=== PATIENT | female | born 1970 | race Caucasian/White ===

== ENCOUNTER → 2016-11-25 | Outpatient (CLI) | payer BC, MEDICARE ==
--- NOTE | 2016-11-26 08:28 | BD ---
EXAMINATION TYPE: MG DEXA axial skeleton. DATE OF EXAM: 11/25/2016 4:03 PM COMPARISON: NONE CLINICAL HISTORY: [id number] OSTEOPOROSIS Height: 63 Weight: 196 FRAX RISK QUESTIONS: Alcohol (3 or more units per day): NO Family History (Parent hip fracture): NO Glucocorticoids (More than 3mos): NO (Ex: prednisone, prednisolone, methylprednisolone, dexamethasone, and hydrocortisone). History of Fracture in Adulthood: PT NOT 48 YET Secondary Osteoporosis: NO 1. Type 1 Diabetes: NO 2. Hyperthyroidism: NO 3. Menopause before 45: NA 4. Malnutrition: NO 5. Chronic liver disease: NO Rheumatoid Arthritis: NO Current Tobacco Use: YES RISK FACTORS HISTORY OF: History of Wrist RT HAND When: 2016 Other Fractures since Age 48: NA Family History of Osteoporosis: NONE KNOWN Smoke tobacco: YES, 1 PAC DAILY Drink Alcohol: NO Active: MODERATE Diet low in dairy products/other sources of calcium: YES, A BIT LOW Postmenopausal woman: LMP 1 WK AGO Adrenal Insufficiency: NO MEDICATIONS: Thyroid Medications: YES, SYNTHROID How Lon YR Additional Medications: VIT D 3, MULTIVITAMIN, SERAQUIL, LAMICTIL, ENDURAL, EFFEXOR, VIT B COMPLEX Additional History: MOTHER PASSED OF MULTIPLE MYLOMA, BIPOLAR EXAM MEASUREMENTS: Bone mineral densitometry was performed using the [employer] System. Bone mineral density as measured about the Lumbar spine is: ----- L1-L4(G/cm2): 1.226 T Score Values are as follows: ----- L1: 0.3 ----- L2: -0.9 ----- L3: 1.4 ----- L4: 0.5 ----- L1-L4: 0.4 Bone mineral density THIS IS HER FIRST BONE DENSITY TEST....BASELINE STUDY Bone mineral density about the R hip (g/cm2): 0.974 Bone mineral density about the L hip (g/cm2): 0.981 T Score values are as follows: -----R Neck: -1.0 -----L Neck: -1.0 -----R Intertrochanter: -0.8 -----L Intertrochanter: -0.5 Bone mineral density FIRST BONE DENSITY SCAN, BASELINE STUDY FRAX %'S: 6.4% FOR A MAJOR OSTEOPOROTIC FX AND 0.6% FOR A HIP FX: PROBABILITY OF A FX IN 10 YRS TIME IMPRESSION: Normal (Values between +1 and -1 indicate normal bone mass FOR BOTH AREAS...BOTH HIPS AND LUMBAR SPINE) NOTE: T-SCORE=SD OF THE YOUNG ADULT MEAN.
== END | disposition home or self-care (01) ==
LOC: RADBDWWP 15:27
PROVIDERS: ATTEND Internal Medicine
DX: M80.041 Age-related osteoporosis with current pathological fracture, right hand (principal)
CPT/HCPCS: 77080

== ENCOUNTER → 2016-11-30 | Outpatient (CLI) | payer BC, MEDICARE ==
--- NOTE | 2016-12-01 12:01 | MR ---
EXAMINATION TYPE: MR brain wo con DATE OF EXAM: 11/30/2016 2:59 PM COMPARISON: 03/30/2012 MRI HISTORY: Double vision, unsteady, migraines CONTRAST: Performed utilizing 0 mL intravenous Omniscan gadolinium contrast. TECHNIQUE: Multiplanar, multiecho imaging on a 3.0 Fifi magnet is performed through the brain. Stud y is performed within 24 hours of arrival to the hospital. The craniovertebral junction is normal. The pituitary is normal. Diffusion-weighted imaging is performed. No abnormal hyperintensity is present to suggest an acute i ntracranial infarct or acute ischemic change. There are couple of punctate hyperintensities within the right. These are nonspecific but can related to microvascular ischemic changes. Changes associated with high-grade headaches could be considered. Ventricles and sulci are appropriate for the patient age. Pituitary is prominent measuring 1.0 cm and is hyperintense on T2 and inversion recovery weighted seq uences. This is hypointense on T1-weighted sequences could be a cyst. This is stable from comparison. IMPRESSIONS: 1. Nonspecific white matter hyperintensities not out of proportion to the patient age
== END | disposition home or self-care (01) ==
LOC: RADMRIMAIN 14:11
PROVIDERS: ATTEND Psychiatry & Neurology Neurology
DX: R90.82 White matter disease, unspecified (principal)
CPT/HCPCS: 70551

== ENCOUNTER 2017-04-11 15:55 | Emergency (ER) | payer BC, MEDICARE ==
[2017-04-11] MEDS ORDERED: SODIUM CHLORIDE 0.9% 1,000 ML IV STA (17:32)
--- NOTE | 2017-04-11 17:37 | ED ---
General Adult HPI - General Chief complaint: Fall Stated complaint: syncope/facial injury Time Seen by Provider: 04/11/17 17:04 Source: patient, RN notes reviewed Mode of arrival: wheelchair Limitations: no limitations - History of Present Illness Initial comments: Patient is a 47-year-old female presents to the emergency room for evaluation of possible syncopal episode. Patient states she does have a history of ocular migraines. Patient states she went to Dr. Candelaria's office yesterday for a regular checkup and everything was normal. Patient states around 11:30 PM last night she went into the kitchen to make herself a bologna sandwich. Patient states that she started to feel very dizzy and began having double vision. Patient states she walked her living room and she woke up face planted on the floor. Patient states she got up and went to walk to her stove to turn it off and woke up on the kitchen floor. Patient states that this went on for about an hour. Patient states after the episode around 12:30 AM she was completely lucid and felt fine. Patient states that she had a laceration over the bridge of her nose, cleaned it up and went to bed. Patient states she woke up this morning feeling fine. Patient states she tried to follow-up with her primary care provider but he is not in the office today. Patient states that she called her neurologist and she was advised to come to the emergency room to be evaluated. Patient does state that she is having pain over her nasal bridge and over her face. Patient states having 5 out of 10 headache. Patient also states she has 2 busby on the palmar portion of her right hand. Patient denies neck pain. Patient denies parasthesias. Patient denies current dizziness or changes in vision. Patient denies any other symptoms or complaints. Patient denies chest pain shortness of breath. Patient's fevers or chills. Patient denies nausea or vomiting. - Related Data Home Medications Medication Instructions Recorded Confirmed Levothyroxine Sodium [Synthroid] 25 mcg PO DAILY 04/11/17 04/11/17 Multivitamins, Thera [Multivitamin 1 tab PO DAILY 04/11/17 04/11/17 (formulary)] Propranolol [Inderal] 20 mg PO HS 04/11/17 04/11/17 QUEtiapine FUMARATE [SEROquel] 600 mg PO HS 04/11/17 04/11/17 Venlafaxine HCl [Effexor] 225 mg PO QAM 04/11/17 04/11/17 lamoTRIgine [LaMICtal] 200 mg PO HS 04/11/17 04/11/17 Allergies Allergy/AdvReac Type Severity Reaction Status Date / Time No Known Allergies Allergy Verified 04/11/17 16:58 Review of Systems ROS Statement: Those systems with pertinent positive or pertinent negative responses have been documented in the HPI. ROS Other: All systems not noted in ROS Statement are negative. Past Medical History Past Medical History: Thyroid Disorder Additional Past Medical History / Comment(s): POTS syndrome, brain cyst History of Any Multi-Drug Resistant Organisms: None Reported Past Surgical History: Cholecystectomy Past Psychological History: Bipolar Smoking Status: Current every day smoker Past Alcohol Use History: None Reported Past Drug Use History: None Reported General Exam - General Exam Comments Initial Comments: sitting in exam room, no acute distress. Limitations: no limitations General appearance: alert, in no apparent distress Head exam: Present: atraumatic, normocephalic, normal inspection Eye exam: Present: normal appearance, PERRL, EOMI Pupils: Present: normal accommodation ENT exam: Present: normal exam, normal oropharynx, other (1 cm laceration over nasal bridge.) Neck exam: Present: normal inspection, full ROM. Absent: tenderness, lymphadenopathy Respiratory exam: Present: normal lung sounds bilaterally. Absent: respiratory distress Cardiovascular Exam: Present: normal rhythm, tachycardia, normal heart sounds Right Hand Wrist exam: Present: full ROM. Absent: normal inspection (Two second degree busby on the palmar portion of the right hand with slight blistering.) Neuro motor exam: Present: wrist extension intact, thumb opposition intact, thumb IP flexion intact, thumb adduction intact, fingers 2-5 abduction intact Vascular: Present: normal capillary refill ( capillary refill less than 2 seconds), radial pulse (2+), ulnar pulse (2+) Back exam: Present: normal inspection Neurological exam: Present: alert, oriented X3, CN II-XII intact, normal gait Psychiatric exam: Present: normal affect, normal mood Skin exam: Present: warm, dry. Absent: rash Course Vital Signs 04/11/17 04/11/17 16:00 19:25 Temperature 99.9 F H Pulse Rate 114 H 87 Respiratory 17 18 Rate Blood Pressure 127/81 132/69 O2 Sat by Pulse 99 95 Oximetry EKG Findings - EKG Comments: EKG Findings:: normal sinus rhythm, ventricular rate 86 bpm, NC interval 148 ms , QRS duration 72 ms, QT/QTC 392/469 ms Procedures - Laceration Laceration #1 Consent Obtained: verbal consent Indication: laceration Site: face Size (cm): 1 Description: irregular Depth: simple, single layer Type of Sutures: other (Dermabond) Patient Tolerated Procedure: well, no complications Medical Decision Making - Medical Decision Making patient is a 47-year-old female presents emergency room for evaluation of possible syncopal episode. Vaginal acute findings. Patient did have a superficial laceration of the nasal bridge that was repaired with Dermabond. Patient updated on her tetanus vaccine. Patient does have 2 second-degree busby on right palmar portion of the hand. Because of patient's symptoms last night it was recommended that patient stay for observation. Patient states that she would rather go home and follow up with her primary care provider/ neurologist on Friday. Patient states that she will be at home with her and he will keep an eye on her. Patient states that she will return for any changing or worsening symptoms. - Lab Data Result diagrams: 04/11/17 17:50 04/11/17 17:50 Lab Results 04/11/17 04/11/17 04/11/17 Range/Units 17:50 17:50 17:50 WBC 12.4 H (3.8-10.6) k/uL RBC 4.91 (3.80-5.40) m/uL Hgb 14.8 (11.4-16.0) gm/dL Hct 43.1 (34.0-46.0) % MCV 87.6 (80.0-100.0) fL MCH 30.0 (25.0-35.0) pg MCHC 34.3 (31.0-37.0) g/dL RDW 12.9 (11.5-15.5) % Plt Count 390 (150-450) k/uL Neutrophils % 71 % Lymphocytes % 22 % Monocytes % 4 % Eosinophils % 1 % Basophils % 0 % Neutrophils # 8.8 H (1.3-7.7) k/uL Lymphocytes # 2.8 (1.0-4.8) k/uL Monocytes # 0.5 (0-1.0) k/uL Eosinophils # 0.1 (0-0.7) k/uL Basophils # 0.1 (0-0.2) k/uL PT (9.0-12.0) sec INR (<1.2) APTT (22.0-30.0) sec Sodium 140 (137-145) mmol/L Potassium 4.0 (3.5-5.1) mmol/L Chloride 106 (98-107) mmol/L Carbon Dioxide 21 L (22-30) mmol/L Anion Gap 13 mmol/L BUN 8 (7-17) mg/dL Creatinine 0.95 (0.52-1.04) mg/dL Est GFR (MDRD) Af Amer >60 (>60 ml/min/1.73 sqM) Est GFR (MDRD) Non-Af >60 (>60 ml/min/1.73 sqM) Glucose 89 (74-99) mg/dL Calcium 9.8 (8.4-10.2) mg/dL Magnesium 2.2 (1.6-2.3) mg/dL Total Bilirubin 0.5 (0.2-1.3) mg/dL AST 19 (14-36) U/L ALT 26 (9-52) U/L Alkaline Phosphatase 76 (38-126) U/L Total Creatine Kinase 57 (30-135) U/L CK-MB (CK-2) 0.5 (0.0-2.4) ng/mL CK-MB (CK-2) Rel Index 0.9 Troponin I <0.012 (0.000-0.034) ng/mL Total Protein 7.6 (6.3-8.2) g/dL Albumin 4.6 (3.5-5.0) g/dL Urine Color Urine Appearance (Clear) Urine pH (5.0-8.0) Ur Specific [place] (1.001-1.035) Urine Protein (Negative) Urine Glucose (UA) (Negative) Urine Ketones (Negative) Urine Blood (Negative) Urine Nitrite (Negative) Urine Bilirubin (Negative) Urine Urobilinogen (<2.0) mg/dL Ur Leukocyte Esterase (Negative) 04/11/17 04/11/17 Range/Units 17:50 18:00 WBC (3.8-10.6) k/uL RBC (3.80-5.40) m/uL Hgb (11.4-16.0) gm/dL Hct (34.0-46.0) % MCV (80.0-100.0) fL MCH (25.0-35.0) pg MCHC (31.0-37.0) g/dL RDW (11.5-15.5) % Plt Count (150-450) k/uL Neutrophils % % Lymphocytes % % Monocytes % % Eosinophils % % Basophils % % Neutrophils # (1.3-7.7) k/uL Lymphocytes # (1.0-4.8) k/uL Monocytes # (0-1.0) k/uL Eosinophils # (0-0.7) k/uL Basophils # (0-0.2) k/uL PT 10.2 (9.0-12.0) sec INR 1.0 (<1.2) APTT 25.4 (22.0-30.0) sec Sodium (137-145) mmol/L Potassium (3.5-5.1) mmol/L Chloride (98-107) mmol/L Carbon Dioxide (22-30) mmol/L Anion Gap mmol/L BUN (7-17) mg/dL Creatinine (0.52-1.04) mg/dL Est GFR (MDRD) Af Amer (>60 ml/min/1.73 sqM) Est GFR (MDRD) Non-Af (>60 ml/min/1.73 sqM) Glucose (74-99) mg/dL Calcium (8.4-10.2) mg/dL Magnesium (1.6-2.3) mg/dL Total Bilirubin (0.2-1.3) mg/dL AST (14-36) U/L ALT (9-52) U/L Alkaline Phosphatase (38-126) U/L Total Creatine Kinase (30-135) U/L CK-MB (CK-2) (0.0-2.4) ng/mL CK-MB (CK-2) Rel Index Troponin I (0.000-0.034) ng/mL Total Protein (6.3-8.2) g/dL Albumin (3.5-5.0) g/dL Urine Color Yellow Urine Appearance Clear (Clear) Urine pH 6.5 (5.0-8.0) Ur Specific [place] 1.007 (1.001-1.035) Urine Protein Negative (Negative) Urine Glucose (UA) Negative (Negative) Urine Ketones Negative (Negative) Urine Blood Negative (Negative) Urine Nitrite Negative (Negative) Urine Bilirubin Negative (Negative) Urine Urobilinogen <2.0 (<2.0) mg/dL Ur Leukocyte Esterase Negative (Negative) - Radiology Data Radiology results: report reviewed, image reviewed Disposition Clinical Impression: Episode of syncope, Facial laceration, Burn of hand, right, second degree Disposition: Left Against Medical Advice Condition: Good Instructions: Syncope (ED), Second Degree Burn (ED) Additional Instructions: Take Tylenol or Motrin as needed for headache. Please follow up with primary care provider or neurologist on Friday. If any new symptom arises or symptoms worsen, return to ER as soon as possible. Referrals: Justo Sarmiento MD [Primary Care Provider] - 1-2 days Con Candelaria MD [STAFF PHYSICIAN] - 1-2 days Time of Disposition: 19:41
[2017-04-11 18:18] LABS: Basophils # (A) 0.1 k/uL (0-0.2); Basophils % (A) 0 %; CH 29.6; CHCM 33.9; Eosinophils # (A) 0.1 k/uL (0-0.7); Eosinophils % (A) 1 %; HCT 43.1 % (34.0-46.0); HDW 2.37; HGB 14.8 gm/dL (11.4-16.0); Luc # (Auto) 0.13; Luc % (Auto) 1; Lymphocytes # (A) 2.8 k/uL (1.0-4.8); Lymphocytes % (A) 22 %; MCHC 34.3 g/dL (31.0-37.0); MCV 87.6 fL (80.0-100.0); Mean Platelet Volume 7.4; Monocytes # (A) 0.5 k/uL (0-1.0); Monocytes % (A) 4 %; Neutrophils # (A) 8.8 k/uL (1.3-7.7); Neutrophils % (A) 71 %; RBC 4.91 m/uL (3.80-5.40); RDW 12.9 % (11.5-15.5); WBC 12.4 k/uL (3.8-10.6); WBC (Perox) 11.86
[2017-04-11 18:25] LABS: Appearance,Urine Clear (Clear); Bilirubin,Urine Negative (Negative); Glucose,Urine (UA) Negative (Negative); Ketones,Urine Negative (Negative); Leukocyte Esterase,Urine Negative (Negative); Nitrite,Urine Negative (Negative); PH, Urine 6.5 (5.0-8.0); Protein,Urine Negative (Negative); Specific Gravity,Urine 1.007 (1.001-1.035); UA Billing (MACRO vs. MICRO) CHEM; Urobilinogen,Urine <2.0 mg/dL (<2.0)
[2017-04-11 18:33] LABS: ALT 26 U/L (9-52); AST 19 U/L (14-36); Alkaline Phosphatase 76 U/L (38-126); Anion Gap 13 mmol/L; Blood Urea Nitrogen 8 mg/dL (7-17); Calcium 9.8 mg/dL (8.4-10.2); Carbon Dioxide 21 mmol/L (22-30); Chloride 106 mmol/L (98-107); Glucose 89 mg/dL (74-99); Magnesium 2.2 mg/dL (1.6-2.3); Non-African American GFR(MDRD) >60 (>60 ml/min/1.73 sqM); Sodium 140 mmol/L (137-145); Total Bilirubin 0.5 mg/dL (0.2-1.3); Total Protein 7.6 g/dL (6.3-8.2)
[2017-04-11 18:38] LABS: Creatine Kinase 57 U/L (30-135); Prothrombin Time 10.2 sec (9.0-12.0)
[2017-04-11 18:39] LABS: Partial Thromboplastin Time 25.4 sec (22.0-30.0)
[2017-04-11] MEDS ORDERED: DIPH,PERTUS(ACELL)TETVAC-LF 0.5 ML VIAL IM ONE (18:43)
[2017-04-11] MEDS ORDERED: ACETAMINOPHEN TAB 325 MG TAB PO STA (18:43)
--- NOTE | 2017-04-11 18:49 | CT ---
EXAMINATION TYPE: CT facial bones wo con DATE OF EXAM: 04/11/2017 COMPARISON: NONE HISTORY: Patient complains of syncopal episode with fall. Patient struck bridge of nose on corner of table, laceration at site. CT DLP: 379.6 mGycm Automated exposure control for dose reduction was used. TECHNIQUE: CT scan of the sinuses is performed without contrast, axial images are obtained, coronal r eformatted images are also reviewed. FINDINGS: The nasal bones and the anterior nasal spine are intact. The paranasal sinuses are intact a nd have normal appearance. The orbits are intact. The temporomandibular joints are congruent. Visuali zed mastoid sinus air cells and middle ear cavities are clear. IMPRESSION: Negative for fracture or malalignment.
[2017-04-11] MEDS ORDERED: TOPICAL SKIN ADHESIVE 1 EACH AMP TOPICAL ONE (18:50)
[2017-04-11 18:51] LABS: Creatine Kinase MB 0.5 ng/mL (0.0-2.4); Troponin I <0.012 ng/mL (0.000-0.034)
--- NOTE | 2017-04-11 18:52 | CT ---
EXAMINATION TYPE: CT brain meet rivera DATE OF EXAM: 04/11/2017 COMPARISON: NONE HISTORY: Patient complains of syncopal episode with fall. Patient struck bridge of nose on corner of table, laceration at site. CT DLP: 1311 mGycm Automated exposure control for dose reduction was used. TECHNIQUE: CT scan of the head and cervical spine are performed without contrast. FINDINGS: There is no acute intracranial hemorrhage, mass effect, or midline shift identified. The ventricles and sulci are within normal limits in size. The globes are intact and the visualized sin uses are clear. Cervical spine is visualized in its entirety from C1 through upper thoracic levels and demonstrates s atisfactory alignment without evidence of acute fracture or dislocation. Prevertebral soft tissue ap pears within normal limits. The C1-C2 articulation is unremarkable. IMPRESSION: 1. There is no acute fracture or dislocation evident in the cervical spine. 2. No acute intracranial hemorrhage, mass effect, or midline shift is seen.
[2017-04-11 19:27] VITALS: RESP 18
[2017-04-11 20:04] VITALS: BP 124/77; PULSE 81; TEMP 99.4
== END 2017-04-11 20:19 | disposition left against medical advice (07) ==
LOC: EC 15:55
DX: R55 Syncope and collapse (principal); S01.21XA Laceration without foreign body of nose, initial encounter; W19.XXXA Unspecified fall, initial encounter; T23.251A Burn of second degree of right palm, initial encounter; Y92.000 Kitchen of unspecified non-institutional (private) residence as the place of occurrence of the external cause; X08.8XXA Exposure to other specified smoke, fire and flames, initial encounter; G90.1 Familial dysautonomia [Riley-Day]; E07.9 Disorder of thyroid, unspecified; Z79.899 Other long term (current) drug therapy; Z86.79 Personal history of other diseases of the circulatory system; F17.200 Nicotine dependence, unspecified, uncomplicated; Z23 Encounter for immunization
CPT/HCPCS: 12011; 36415; 70450; 70486; 72125; 80053; 81003; 82550; 82553; 83735; 84484; 85025; 85610; 85730; 90471; 90715; 93005; 96360; 99284

== ENCOUNTER → 2017-05-07 | Outpatient (CLI) | payer BC, MEDICARE ==
--- NOTE | 2017-05-08 10:53 | MM ---
Reason for exam: screening (asymptomatic). Last mammogram was performed 1 year and 1 month ago. History: Family history of breast cancer in maternal aunt at age 45 and breast cancer in maternal grandmother at age 40. Physical Findings: A clinical breast exam by your physician is recommended on an annual basis and results should be correlated with mammographic findings. MG 3D Screening Mammo W/Cad Bilateral CC and MLO view(s) were taken. Prior study comparison: April 03, 2016, bilateral MG 3d screening mammo w/cad. April 19, 2014, bilateral MG diagnostic mammo w CAD MADELINE. March 03, 2013, right diagnostic mammogram w/CAD. The breast tissue is heterogeneously dense. This may lower the sensitivity of mammography. Finding: Architectural distortion in the middle position of the left breast. (MLO slab 58/83). ASSESSMENT: Incomplete: need additional imaging evaluation, BI-RAD 0 RECOMMENDATION: Special view mammogram and ultrasound of the left breast. [facility] will attempt to contact patient to return for supplemental views and ultrasound.
== END | disposition home or self-care (01) ==
LOC: RADMAMWWP 11:21
PROVIDERS: ATTEND Internal Medicine
DX: Z12.31 Encounter for screening mammogram for malignant neoplasm of breast (principal); R92.2 Inconclusive mammogram
CPT/HCPCS: 77063; G0202

== ENCOUNTER → 2017-05-15 | Outpatient (CLI) | payer BC, MEDICARE ==
--- NOTE | 2017-05-15 11:57 | MM ---
Reason for exam: additional evaluation requested from abnormal screening. Last mammogram was performed less than 1 month ago. History: Family history of breast cancer in maternal aunt at age 45 and breast cancer in maternal grandmother at age 40. Physical Findings: Nurse Summary: 1cm nodule in the left breast at 9 o'clock (nurse joanne). MG 3D Work Up W/Cad LT Spot compression MLO, spot compression CC, and ML view(s) were taken of the left breast. Prior study comparison: May 07, 2017, bilateral MG 3d screening mammo w/cad. April 03, 2016, bilateral MG 3d screening mammo w/cad. April 19, 2014, bilateral MG diagnostic mammo w CAD MADELINE. The breast tissue is heterogeneously dense. This may lower the sensitivity of mammography. The questioned area of central posterior architectural distortion does not persist. Nodular asymmetry laterally and posteriorly on the CC view becomes less defined. An elongate 1.1 x 0.5cm asymmetry inferiorly and posteriorly stands out on ML view. No sonographic correlate was seen. These results were verbally communicated with the patient and result sheet given to the patient on 05/15/17. ASSESSMENT: Probably benign, BI-RAD 3 RECOMMENDATION: Follow-up diagnostic mammogram and ultrasound of the left breast in 6 months.
--- NOTE | 2017-05-15 12:00 | USB ---
Reason for exam: additional evaluation requested from abnormal screening. History: Family history of breast cancer in maternal aunt at age 45 and breast cancer in maternal grandmother at age 40. US Breast Workup LT Left breast ultrasound includes all four quadrants, the retroareolar region and axilla. Finding demonstrates a 5 x 2 x 5mm solid, hypoechoic lesion at 5 o'clock, 5.2cm from nipple for which a 6 month follow up is recommended. No other solid or cystic lesion seen. No abnormality seen at the 8-9 o'clock nurse detected palpable site. These results were verbally communicated with the patient and result sheet given to the patient on 05/15/17. ASSESSMENT: Incomplete: need additional imaging evaluation, BI-RAD 0 RECOMMENDATION: Special view mammogram of the left breast.
== END | disposition home or self-care (01) ==
LOC: RADMAMWWP 09:16
PROVIDERS: ATTEND Internal Medicine
DX: R92.8 Other abnormal and inconclusive findings on diagnostic imaging of breast (principal)
CPT/HCPCS: 76641; G0206; G0279

== ENCOUNTER → 2017-06-05 | Day surgery (SDC) | payer BC, MEDICARE ==
[2017-05-28 11:21] VITALS: BMI 29.9
[~2017-06-05] MED LIST: SODIUM CHLORIDE 0.9% 1,000 ML IV SCH
[2017-06-05 12:40] VITALS: BP 117/70; PULSE 86; RESP 16; TEMP 98.2
--- NOTE | 2017-06-05 19:01 | P.PCN ---
Preoperative Diagnosis: Twelve-lead ECG shows sinus rhythm normal MD narrow QRS normal QT interval. Patient is on Seroquel and Effexor Tilt table test for recurrent dizzy spells and presyncope Baseline blood pressure 123/75 mmHg Baseline heart rate 74 beats a minute patient was tilted upright at an angle of 70 per protocol there was any major drop in her blood pressure by about 10-15 points but this resolved in about 4 minutes and thereafter her heart rate and blood pressure remained stable. Patient is laid supine heart rate went down from 90 beats a minute to 72 beats a minute No neurocardiogenic syncope No clear-cut dysautonomia or orthostatic intolerance Impression Orthostatic hypotension which resolved quickly within 4 minutes No evidence for neurocardiogenic syncope Postoperative Diagnosis: Procedure(s) Performed: Implants: Anesthesia: none Condition: stable Disposition: same day Indications for Procedure: Operative Findings: Description of Procedure:
== END ==
LOC: CATHEP 12:09
PROVIDERS: ATTEND Internal Medicine Clinical Cardiac Electrophysiology
DX: I95.1 Orthostatic hypotension (principal); F41.9 Anxiety disorder, unspecified; R25.1 Tremor, unspecified; F17.210 Nicotine dependence, cigarettes, uncomplicated; Z79.899 Other long term (current) drug therapy
CPT/HCPCS: 81025; 93005; 93660

== ENCOUNTER → 2017-11-17 | Outpatient (CLI) | payer BC, MEDICARE ==
--- NOTE | 2017-11-17 09:37 | MM ---
Reason for exam: follow-up at short interval from prior study. Last mammogram was performed 6 months ago. History: Family history of breast cancer in maternal aunt at age 45 and breast cancer in maternal grandmother at age 40. Took hormonal contraceptives beginning at age 18. Physical Findings: A clinical breast exam by your physician is recommended on an annual basis and results should be correlated with mammographic findings. MG 3D Diag Mammo W/Cad LT CC, MLO, and ML view(s) were taken of the left breast. Prior study comparison: May 15, 2017, left breast MG 3d work up w/cad LT. May 07, 2017, bilateral MG 3d screening mammo w/cad. The breast tissue is heterogeneously dense. This may lower the sensitivity of mammography. The questioned lateral asymmetry does not persist. No significant new findings when compared with previous films. These results were verbally communicated with the patient and result sheet given to the patient on 11/17/17. ASSESSMENT: Negative, BI-RAD 1 RECOMMENDATION: Return to routine screening mammogram schedule for both breasts. Back on schedule.
[2017-11-17 10:56] LABS: ALT 27 U/L (9-52); AST 20 U/L (14-36); Albumin 4.6 g/dL (3.5-5.0); Alkaline Phosphatase 80 U/L (38-126); Anion Gap 14 mmol/L; Blood Urea Nitrogen 10 mg/dL (7-17); Calcium 9.9 mg/dL (8.4-10.2); Carbon Dioxide 19 mmol/L (22-30); Chloride 105 mmol/L (98-107); Cholesterol 232 mg/dL (<200); Glucose 99 mg/dL (74-99); HDL Cholesterol 64 mg/dL (40-60); LDL Cholesterol,Calculated 135 mg/dL (0-99); Potassium 4.7 mmol/L (3.5-5.1); Sodium 138 mmol/L (137-145); Total Bilirubin 0.2 mg/dL (0.2-1.3); Total Protein 7.6 g/dL (6.3-8.2); Triglycerides 166 mg/dL (<150)
[2017-11-17 11:11] LABS: T4, Free (Free Thyroxine) 0.84 ng/dL (0.78-2.19)
[2017-11-17 11:22] LABS: Basophils % (A) 1 %; Eosinophils # (A) 0.1 k/uL (0-0.7); Eosinophils % (A) 2 %; HCT 41.8 % (34.0-46.0); HGB 13.9 gm/dL (11.4-16.0); Lymphocytes # (A) 1.7 k/uL (1.0-4.8); Lymphocytes % (A) 24 %; MCH 29.4 pg (25.0-35.0); MCHC 33.3 g/dL (31.0-37.0); MCV 88.3 fL (80.0-100.0); Mean Platelet Volume 8.3; Monocytes # (A) 0.4 k/uL (0-1.0); Monocytes % (A) 6 %; Neutrophils # (A) 4.9 k/uL (1.3-7.7); Neutrophils % (A) 68 %; Platelet Count 222 k/uL (150-450); RBC 4.73 m/uL (3.80-5.40); RDW 12.7 % (11.5-15.5); WBC 7.2 k/uL (3.8-10.6)
== END | disposition home or self-care (01) ==
LOC: RADMAMWWP 08:35
PROVIDERS: ATTEND Internal Medicine
DX: R92.8 Other abnormal and inconclusive findings on diagnostic imaging of breast (principal); I10 Essential (primary) hypertension; E78.2 Mixed hyperlipidemia; E55.9 Vitamin D deficiency, unspecified; E03.9 Hypothyroidism, unspecified
CPT/HCPCS: 84439; 84481; 80061; 80053; 80175; 84443; 85025; 77065; 36415; G0279

== ENCOUNTER → 2017-11-18 | Outpatient (CLI) | payer BC, MEDICARE | END | disposition home or self-care (01) | LOC: LABWHC1 11:30 | PROVIDERS: ATTEND Internal Medicine | DX: I10 Essential (primary) hypertension (principal); E78.2 Mixed hyperlipidemia; E03.9 Hypothyroidism, unspecified; E55.9 Vitamin D deficiency, unspecified | CPT/HCPCS: 36415; 82306 ==

== ENCOUNTER → 2018-06-15 | Outpatient (CLI) | payer BC, MEDICARE ==
--- NOTE | 2018-06-15 10:25 | MM ---
Reason for exam: additional evaluation requested from abnormal screening. Last mammogram was performed less than 1 month ago. History: Family history of breast cancer in maternal aunt at age 45, breast cancer in paternal aunt at age 55, breast cancer in paternal aunt at age 65, and breast cancer in maternal grandmother at age 40. Took hormonal contraceptives beginning at age 18. Physical Findings: Nurse did not find any significant physical abnormalities on exam. MG 3D Work Up W/Cad RT Spot compression CC, spot compression MLO, and LM view(s) were taken of the right breast. Prior study comparison: June 05, 2018, bilateral MG 3d screening mammo w/cad. November 17, 2017, left breast MG 3d diag mammo w/cad LT. The breast tissue is heterogeneously dense. This may lower the sensitivity of mammography. The questioned upper outer quadrant focal asymmetry does not appear to persist on additional views. A precautionary 6 month follow up recommended. These results were verbally communicated with the patient and result sheet given to the patient on 06/15/18. ASSESSMENT: Probably benign, BI-RAD 3 RECOMMENDATION: Follow-up diagnostic mammogram of the right breast in 6 months.
== END ==
LOC: RADMAMWWP 08:03
PROVIDERS: ATTEND Internal Medicine
DX: R92.8 Other abnormal and inconclusive findings on diagnostic imaging of breast (principal)
CPT/HCPCS: 77061; 77065

== ENCOUNTER → 2018-12-22 | Outpatient (CLI) | payer BC, MEDICARE ==
--- NOTE | 2018-12-22 12:21 | MM ---
Reason for exam: follow-up at short interval from prior study. Last mammogram was performed 6 months ago. History: Family history of breast cancer in maternal aunt at age 45, breast cancer in paternal aunt at age 55, breast cancer in paternal aunt at age 65, and breast cancer in maternal grandmother at age 40. Took hormonal contraceptives beginning at age 18. Physical Findings: Nurse did not find any significant physical abnormalities on exam. MG 3D Diag Mammo W/Cad RT Spot compression CC, spot compression MLO, and LM view(s) were taken of the right breast. Prior study comparison: June 15, 2018, right breast MG 3d work up w/cad RT. June 05, 2018, bilateral MG 3d screening mammo w/cad. The breast tissue is heterogeneously dense. This may lower the sensitivity of mammography. Finding: Architectural distortion in the upper outer quadrant of the right breast. These results were verbally communicated with the patient and result sheet given to the patient on 12/22/18. ASSESSMENT: Incomplete: need additional imaging evaluation, BI-RAD 0 RECOMMENDATION: Ultrasound of the right breast.
--- NOTE | 2018-12-22 12:23 | USB ---
Reason for exam: additional evaluation requested from abnormal screening. History: Family history of breast cancer in maternal aunt at age 45, breast cancer in paternal aunt at age 55, breast cancer in paternal aunt at age 65, and breast cancer in maternal grandmother at age 40. Took hormonal contraceptives beginning at age 18. US Breast Limited RT Right limited breast ultrasound including focal area of concern, retroareolar and axilla demonstrates a 6 x 4 x 7mm lobular, cystic lesion at 10 o'clock with thin single septation, benign complicated cyst. No sonographic correlate to the mammographic asymmetry. These results were verbally communicated with the patient and result sheet given to the patient on 12/22/18. ASSESSMENT: Probably benign, BI-RAD 3 RECOMMENDATION: Follow-up diagnostic mammogram of both breasts in 6 months.
[2018-12-22 13:11] LABS: Basophils # (A) 0.1 k/uL (0-0.2); Basophils % (A) 1 %; Eosinophils # (A) 0.2 k/uL (0-0.7); Eosinophils % (A) 2 %; HCT 44.5 % (34.0-46.0); HGB 14.4 gm/dL (11.4-16.0); Lymphocytes # (A) 1.9 k/uL (1.0-4.8); Lymphocytes % (A) 24 %; MCH 28.3 pg (25.0-35.0); MCHC 32.3 g/dL (31.0-37.0); MCV 87.6 fL (80.0-100.0); Mean Platelet Volume 7.3; Monocytes # (A) 0.4 k/uL (0-1.0); Monocytes % (A) 4 %; Neutrophils # (A) 5.4 k/uL (1.3-7.7); Neutrophils % (A) 68 %; Platelet Count 443 k/uL (150-450); RBC 5.08 m/uL (3.80-5.40); RDW 13.8 % (11.5-15.5)
[2018-12-22 14:05] LABS: Albumin 4.6 g/dL (3.5-5.0); Calcium 10.4 mg/dL (8.4-10.2); Potassium 4.8 mmol/L (3.5-5.1); Total Bilirubin 0.4 mg/dL (0.2-1.3)
[2018-12-22 14:22] LABS: T4, Free (Free Thyroxine) 0.9 ng/dL (0.78-2.19)
== END ==
LOC: RADMAMWWP 10:40
PROVIDERS: ATTEND Internal Medicine
DX: R92.8 Other abnormal and inconclusive findings on diagnostic imaging of breast (principal); E78.2 Mixed hyperlipidemia; E55.9 Vitamin D deficiency, unspecified; E03.9 Hypothyroidism, unspecified; R55 Syncope and collapse
CPT/HCPCS: 36415; 77061; 77065; 80053; 80061; 82306; 84439; 84443; 84481; 85025

== ENCOUNTER → 2019-11-02 | Outpatient (CLI) | payer BC, MEDICARE ==
--- NOTE | 2019-11-03 09:19 | MM ---
Reason for exam: follow-up at short interval from prior study. Last mammogram was performed 10 months ago. History: Family history of breast cancer in maternal aunt at age 45, breast cancer in paternal aunt at age 55, breast cancer in paternal aunt at age 65, and breast cancer in maternal grandmother at age 40. Took hormonal contraceptives beginning at age 18. Physical Findings: Nurse did not find any significant physical abnormalities on exam. MG 3D Diag Mammo W/Cad MADELINE Bilateral CC and MLO view(s) were taken. Prior study comparison: December 22, 2018, right breast MG 3d diag mammo w/cad RT. June 15, 2018, right breast MG 3d work up w/cad RT. There are scattered fibroglandular densities. Stable scattered asymmetries. No significant new findings when compared with previous films. These results were verbally communicated with the patient and result sheet given to the patient on 11/02/19. ASSESSMENT: Benign, BI-RAD 2 RECOMMENDATION: Routine screening mammogram of both breasts in 1 year.
== END | disposition home or self-care (01) ==
LOC: RADMAMWWP 15:14
PROVIDERS: ATTEND Internal Medicine
DX: R92.8 Other abnormal and inconclusive findings on diagnostic imaging of breast (principal)
CPT/HCPCS: 77062; 77066

== ENCOUNTER → 2021-03-21 | Outpatient (CLI) | payer BC, MEDICARE ==
--- NOTE | 2021-03-22 10:01 | MM ---
Reason for exam: screening (asymptomatic). Last mammogram was performed 1 year and 5 months ago. History: Patient is postmenopausal. Family history of breast cancer in maternal aunt at age 45, breast cancer in paternal aunt at age 55, breast cancer in paternal aunt at age 65, and breast cancer in maternal grandmother at age 40. Took hormonal contraceptives for 10 years beginning at age 18. Physical Findings: A clinical breast exam by your physician is recommended on an annual basis and results should be correlated with mammographic findings. MG 3D Screening Mammo W/Cad Bilateral CC and MLO view(s) were taken. Prior study comparison: November 02, 2019, bilateral MG 3d diag mammo w/cad MADELINE. June 05, 2018, bilateral MG 3d screening mammo w/cad. There are scattered fibroglandular densities. ASSESSMENT: Negative, BI-RAD 1 RECOMMENDATION: Routine screening mammogram of both breasts in 1 year.
== END | disposition home or self-care (01) ==
LOC: RADMAMWWP 07:43
PROVIDERS: ATTEND Internal Medicine
DX: Z12.31 Encounter for screening mammogram for malignant neoplasm of breast (principal); Z80.3 Family history of malignant neoplasm of breast
CPT/HCPCS: 77063; 77067

== ENCOUNTER → 2022-02-13 | Outpatient (CLI) | payer BC, MEDICARE ==
[2022-02-13 10:15] VITALS: BP 121/78; PULSE 91; RESP 17; TEMP 97.9
--- NOTE | 2022-02-13 11:20 | P.HPOB ---
History of Present Illness H&P Date: 02/13/22 Chief Complaint: The patient is here for her routine gynecologic exam. This is a 51-year-old 001 with an LMP of 2019. The patient is here to establish with this office. She has been experiencing occasional urinary leakage especially with coughing and sneezing. She states the leakage is typically immediate. She denies urge incontinence symptoms. Her last pelvic exam was about 4 years ago. She denies postmenopausal bleeding. Review of Systems The patient has gained 25 pounds over the last year. She attributes this to decreased activity. She denies respiratory, cardiac, or G.I. problems. Past Medical History Past Medical History: GERD/Reflux, Hyperlipidemia, Mitral Valve Prolapse (MVP), Thyroid Disorder Additional Past Medical History / Comment(s): POTS syndrome, brain cyst, LEAKY HEART VALVE. 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 She did have cryotherapy of the cervix years ago. History of Any Multi-Drug Resistant Organisms: None Reported Past Surgical History: Cholecystectomy Additional Past Surgical History / Comment(s): BONE GRAFT, hand surgery. Car diac ablation. Colonoscopy 2012. Past Anesthesia/Blood Transfusion Reactions: No Reported Reaction Past Psychological History: Bipolar (She denies any current depression symptoms with her medications.) Smoking Status: Current every day smoker (1 pack per day but is currently trying to quit.) Past Alcohol Use History: Rare (1 per year) Past Drug Use History: Opiates Additional Drug Use History / Comment(s): History of opiate abuse but has been free of opiates since 2011. Additional History: She has been since 1988. She is currently not working outside of the home. - Past Family History Mother Family Medical History: Cancer Additional Family Medical History / Comment(s): Multiple myeloma. Maternal grandmother had colon cancer. Father Family Medical History: Cancer, Diabetes Mellitus Additional Family Medical History / Comment(s): Skin cancer. Paternal aunt had breast cancer and another paternal aunt had breast cancer and colon cancer. Brother(s) Family Medical History: Myocardial Infarction ([place]) Additional Family Medical History / Comment(s): of an [place]. Obesity. Medications and Allergies Home Medications Medication Instructions Recorded Confirmed Type QUEtiapine FUMARATE [SEROquel] 600 mg PO HS 04/11/17 02/13/22 History Venlafaxine HCl [Effexor] 150 mg PO QAM 04/11/17 02/13/22 History lamoTRIgine [LaMICtal] 200 mg PO HS 04/11/17 02/13/22 History Levothyroxine Sodium [Synthroid] 50 mcg PO DAILY 05/28/17 02/13/22 History Omeprazole [PriLOSEC] 40 mg PO DAILY 02/13/22 02/13/22 History Rosuvastatin [Crestor] 10 mg PO DAILY 02/13/22 02/13/22 History Varenicline [Chantix Continuing 1 mg PO DAILY 02/13/22 02/13/22 History Pack] lamoTRIgine [LaMICtal] 150 mg PO DIRECTED 02/13/22 02/13/22 History Allergies Allergy/AdvReac Type Severity Reaction Status Date / Time No Known Allergies Allergy Verified 02/13/22 09:55 Exam Vital Signs Temp Pulse Resp BP Pulse Ox 02/13/22 10:01 97.9 F 91 17 121/78 98 Intake and Output 02/12/22 02/13/22 02/13/22 22:59 06:59 14:59 Other: Weight 95.254 kg Height 5 feet 5 inches, weight 210 pounds, BMI 34.9. This is a well-developed well-nourished white female who is alert and oriented times 3 in no acute distress. HEENT: Within normal limits. NECK: Supple without mass or thyromegaly. CHEST AND LUNGS: Clear to auscultation. HEART: Regular rate and rhythm. BREASTS: Are without mass or discharge. There is a mole in the crease under the left breast measuring 13 x 9 mm when she has a slightly irregular border. The mole is brown. AXILLARY EXAM: Negative for adenopathy. BACK: Negative for CVA tenderness. ABDOMEN: Soft, nontender, without palpable masses. PELVIC EXAM: Normal external genitalia with mild atrophy. Cervix and vagina appear normal mild atrophy. There is no unusual discharge. There is no evidence of prolapse at rest but there is mild urethral mobility with cough and Valsalva. No urinary leakage is demonstrated. The uterus is midposition, nongravid size and nontender. There are no palpable adnexal masses or tenderness. RECTAL EXAM: Rectovaginal exam is negative for mass or tenderness and is negative for occult blood. There is good sphincter tone. EXTREMITIES: Nontender. IMPRESSION: 1. 51-year-old menopausal female with normal gynecologic exam. 2. Mild stress urinary incontinence with mild urethral mobility with cough and Valsalva. 3. Slightly suspicious mole under the left breast measuring 13 x 9 mm. PLAN: 1. Pap smear cotest was performed. 2. Self breast awareness was discussed with the patient. We have also discussed symptoms associated with inflammatory breast cancer. 3. Screening mammogram will be due in approximately 1 month and the order slip was given to the patient for this. 4. I have recommended that she see a salt miner regarding the skin lesion beneath the left breast. She states she will see a salt miner especially since her father was diagnosed with melanoma. She will call a local salt miner for evaluation. 5. We have had long discussion regarding her stress urinary incontinence. Have recommended ketal exercises and timed voids. Instructions on these were given to the patient. She will also try to empty her bladder as completely as possible when she does void and to hold urine too long. If she is not noticing significant improvement, we have discussed the option of referral to a gynecologic urologist. 6. She has completed her Covid vaccination series and did receive a booster. 7. She is planning on getting a colonoscopy in the near future and will do this through her PCP. 8. She was advised to return in one year for her annual well woman exam.
[2022-02-13 18:26] LABS: Basophils # (A) 0.06 X 10*3/uL (0.00-0.10); Basophils % (A) 0.8 %; Eosinophils # (A) 0.14 X 10*3/uL (0.04-0.35); Eosinophils % (A) 1.9 %; Immature Grans, Automated 0.3 %; Lymphocytes # (A) 2.12 X 10*3/uL (0.90-5.00); Lymphocytes % (A) 29.3 %; MCH 29.1 pg (27.0-32.0); MCHC 31.3 g/dL (32.0-37.0); Mean Platelet Volume 10.4 fL (9.5-12.2); Monocytes # (A) 0.41 X 10*3/uL (0.20-1.00); Monocytes % (A) 5.7 %; NRBC Per 100 WBC 0 /100 WBCS (0.0-0.0); Neutrophils # (A) 4.49 X 10*3/uL (1.80-7.70); Platelet Count 345 X 10*3/uL (140-440); RBC 5.16 X 10*6/uL (4.10-5.20); RDW 13.5 % (11.5-14.5); WBC 7.24 X 10*3/uL (4.50-10.00)
[2022-02-13 19:12] LABS: ALT 63 U/L (8-44); AST 45 U/L (13-35); African American GFR (CKD) 74.5 (60.0-200.0); Albumin 4.9 g/dL (3.8-4.9); Albumin/Globulin Ratio 1.63 (1.60-3.17); Alkaline Phosphatase 121 U/L (41-126); Blood Urea Nitrogen 8.3 mg/dL (9.0-27.0); Calcium 10.1 mg/dL (8.7-10.3); Chloride 102 mmol/L (96-109); Chol/HDL Ratio 3.71 Ratio; Glucose 104 mg/dL (70-110); LDL Cholesterol,Calculated 111.1 mg/dL (0.0-131.0); Non-African American GFR(CKD) 64.3 (60.0-200.0); Potassium 4.4 mmol/L (3.5-5.5); Sodium 139 mmol/L (135-145); Total Protein 7.9 g/dL (6.2-8.2)
== END ==
LOC: WWCWWP 09:29
PROVIDERS: ATTEND Obstetrics & Gynecology
DX: Z01.419 Encounter for gynecological examination (general) (routine) without abnormal findings (principal); K21.9 Gastro-esophageal reflux disease without esophagitis; E78.5 Hyperlipidemia, unspecified; E03.9 Hypothyroidism, unspecified; F31.9 Bipolar disorder, unspecified; F17.210 Nicotine dependence, cigarettes, uncomplicated; N39.3 Stress incontinence (female) (male)
CPT/HCPCS: 80053; 80061; 80074; 80175; 82306; 84439; 84443; 85025

== ENCOUNTER → 2022-02-27 | Outpatient (CLI) | payer BC, MEDICARE ==
--- NOTE | 2022-02-27 15:32 | CTL ---
EXAMINATION TYPE: CT Low Dose Lung DATE OF EXAM ORDERED: 02/27/2022 HISTORY: History of nicotine dependence. Lung cancer screening CT DLP: 121.[address] CTDI: 3.60 mGy Automated exposure control for dose reduction was used. SCREENING VISIT: Initial COMPARISON: None TECHNIQUE: Low dose computed tomography scan was performed through the chest at 1 mm thick sections a nd reconstructed images in the coronal plane at [address] DIAGNOSTIC QUALITY: Satisfactory FINDINGS: LUNG NODULES: Present, detailed below: 1. There is a 0.3 cm peripheral nodule in the posterior left apex. Series 4 image 29. LUNGS: COPD: Severity: None Fibrosis: Severity: None Lymph nodes: None Other findings: None RIGHT PLEURAL SPACE: Effusion: None Calcification: None Thickening: None Pneumothorax: None LEFT PLEURAL SPACE: Effusion: None Calcification: None Thickening: None Pneumothorax: None HEART: Heart Size: Normal Coronary calcification: None Pericardial effusion: None OTHER FINDINGS: Upper abdomen: Normal Bony thorax: Normal Supraclavicular region: Normal Other: Ascending thoracic aorta at the level the main pulmonary artery measures 3.9 cm. The main pul monary artery at the bifurcation measures 2.7 cm. IMPRESSION: Probably benign findings FOLLOW UP CT CHEST RECOMMENDATION: Follow up CT chest [address] LUNG RAD: Lung-Rad 3 Probably Benign
== END | disposition home or self-care (01) ==
LOC: RADCTMAIN 08:22
PROVIDERS: ATTEND Internal Medicine
DX: Z12.2 Encounter for screening for malignant neoplasm of respiratory organs (principal); Z87.891 Personal history of nicotine dependence
CPT/HCPCS: 71271

== ENCOUNTER → 2022-03-06 | Outpatient (CLI) | payer BC, MEDICARE ==
--- NOTE | 2022-03-07 10:29 | CA ---
Transthoracic Echo Report Name: Maricarmen Hays Age: 52 Gender: F : 1970 Exam Date: 03/06/2022 14:01 Exam Location: [facility] Ht (in): 64 Wt (lb): 208 Ordering Physician: Dima Morales MD Attending/Referring Phys: [facility] Director Anneliese Muniz RDCS Procedure CPT: Indications: I77.810 ascending aortic dilation Cardiac Hx: Technical Quality: Fair Contrast 1: Total Dose (mL): Contrast 2: Total Dose (mL): MEASUREMENTS (Male / Female) Normal Values 2D ECHO LV Diastolic Diameter PLAX 4.1 cm 4.2 - 5.9 / 3.9 - 5.3 cm LV Systolic Diameter PLAX 2.8 cm IVS Diastolic Thickness 1.3 cm 0.6 - 1.0 / 0.6 - 0.9 cm LVPW Diastolic Thickness 1.2 cm 0.6 - 1.0 / 0.6 - 0.9 cm LV Relative Wall Thickness 0.6 RV Internal Dim ED PLAX 2.7 cm LA Systolic Diameter LX 3.0 cm 3.0 - 4.0 / 2.7 - 3.8 cm M-MODE Aortic Root Diameter MM 3.3 cm MV E Point Septal Separation 1.0 cm AV Cusp Separation MM 2.2 cm DOPPLER AV Peak Velocity 129.1 cm/s AV Peak Gradient 6.7 mmHg MV Area PHT 3.9 cm??? Mitral E Point Velocity 101.1 cm/s Mitral A Point Velocity 128.3 cm/s Mitral E to A Ratio 0.8 MV Deceleration Time 196.5 ms MV E' Velocity 6.4 cm/s Mitral E to MV E' Ratio 15.8 TR Peak Velocity 227.4 cm/s TR Peak Gradient 20.7 mmHg Right Ventricular Systolic Press 25.7 mmHg FINDINGS Left Ventricle Left ventricular ejection fraction is estimated at 60-65 %. Left ventricular cavity size normal. Right Ventricle Mildly increased right ventricular wall thickness. Right ventricular systolic pressure within normal limits. Right Atrium Normal right atrial size. Left Atrium Normal left atrial size. Mitral Valve Trace to mild mitral regurgitation. Aortic Valve No aortic valve stenosis or regurgitation. Tricuspid Valve Trace to mild tricuspid regurgitation. Pulmonic Valve Pulmonic valve not well visualized. Pericardium Normal pericardium. Aorta Normal size aortic root and proximal ascending aorta. CONCLUSIONS #1. Normal left ventricular size and preserved LV function. #2. Trace to mild mitral and tricuspid regurgitation Previewed by: Dr. Yani Wood MD (Electronically Signed) Final Date: 07 March 2022 10:28
== END | disposition home or self-care (01) ==
LOC: RADECHMAIN 13:42
PROVIDERS: ATTEND Internal Medicine
DX: I77.810 Thoracic aortic ectasia (principal)
CPT/HCPCS: 93306

== ENCOUNTER 2022-05-27 10:09 | Observation (INO) | payer BC, MEDICARE ==
[2022-05-27] MEDS ORDERED: SODIUM CHLORIDE 0.9% 1,000 ML IV STA (10:46)
[2022-05-27] MEDS ORDERED: KETOROLAC 15 MG/ML 1 ML VIAL IVP STA (10:46)
[2022-05-27 11:29] LABS: Appearance,Urine Cloudy (Clear); Bacteria,Urine Occasional /hpf; Bilirubin,Urine Negative (Negative); Blood,Urine Negative (Negative); Color,Urine Yellow; Glucose,Urine (UA) Negative (Negative); Ketones,Urine Negative (Negative); Leukocyte Esterase,Urine Small (Negative); Mucus,Urine Occasional /hpf; Nitrite,Urine Negative (Negative); Protein,Urine 1+ (Negative); RBC,Urine 1 /hpf (0-5); Specific Gravity,Urine 1.026 (1.001-1.035); Squamous Epithelial Cell,Urine 10 /hpf (0-4); WBC,Urine 7 /hpf (0-5)
[2022-05-27] MEDS ORDERED: ONDANSETRON 4 MG/2 ML VIAL IVP STA (11:29)
[2022-05-27 11:35] LABS: Basophils # (A) 0.1 k/uL (0-0.2); Basophils % (A) 0 %; Eosinophils # (A) 0.2 k/uL (0-0.7); Eosinophils % (A) 1 %; HGB 14.1 gm/dL (11.4-16.0); Lymphocytes # (A) 1.8 k/uL (1.0-4.8); Lymphocytes % (A) 11 %; MCH 29.6 pg (25.0-35.0); MCHC 32.7 g/dL (31.0-37.0); MCV 90.6 fL (80.0-100.0); Mean Platelet Volume 7.8; Monocytes # (A) 0.6 k/uL (0-1.0); Monocytes % (A) 4 %; Neutrophils # (A) 13.3 k/uL (1.3-7.7); Neutrophils % (A) 83 %; Platelet Count 320 k/uL (150-450); RBC 4.75 m/uL (3.80-5.40); RDW 13.5 % (11.5-15.5)
[2022-05-27 11:46] LABS: Albumin 4.6 g/dL (3.5-5.0); Calcium 9.2 mg/dL (8.4-10.2); Potassium 4.1 mmol/L (3.5-5.1); Total Bilirubin 0.3 mg/dL (0.2-1.3); Total Protein 7.5 g/dL (6.3-8.2)
--- NOTE | 2022-05-27 12:15 | ED ---
Abdominal Pain HPI - General Chief Complaint: Abdominal Pain Stated Complaint: ABD PAIN Time Seen by Provider: 05/27/22 10:22 Source: patient, RN notes reviewed Mode of arrival: ambulatory Limitations: no limitations - History of Present Illness Initial Comments: 52-year-old female presents emergency Department with chief complaint of abdominal pain. Patient states started with. Umbilical pain was severe subsided but now is old right lower quadrant pain. States it hurts when she moves. Patient states she's had some nausea no change in bowel habits decrease in appetite. Patient had prior cholecystectomy over 10 years ago. - Related Data Home Medications Medication Instructions Recorded Confirmed QUEtiapine FUMARATE [SEROquel] 600 mg PO HS 04/11/17 02/13/22 Venlafaxine HCl [Effexor] 150 mg PO QAM 04/11/17 02/13/22 lamoTRIgine [LaMICtal] 200 mg PO HS 04/11/17 02/13/22 Levothyroxine Sodium [Synthroid] 50 mcg PO DAILY 05/28/17 02/13/22 Omeprazole [PriLOSEC] 40 mg PO DAILY 02/13/22 02/13/22 Rosuvastatin [Crestor] 10 mg PO DAILY 02/13/22 02/13/22 Varenicline [Chantix Continuing 1 mg PO DAILY 02/13/22 02/13/22 Pack] lamoTRIgine [LaMICtal] 150 mg PO DIRECTED 02/13/22 02/13/22 Allergies Allergy/AdvReac Type Severity Reaction Status Date / Time No Known Allergies Allergy Verified 05/27/22 10:22 Review of Systems ROS Statement: Those systems with pertinent positive or pertinent negative responses have been documented in the HPI. ROS Other: All systems not noted in ROS Statement are negative. Past Medical History Past Medical History: GERD/Reflux, Hyperlipidemia, Mitral Valve Prolapse (MVP), Thyroid Disorder Additional Past Medical History / Comment(s): POTS syndrome, brain cyst, LEAKY HEART VALVE. 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 She did have cryotherapy of the cervix years ago. History of Any Multi-Drug Resistant Organisms: None Reported Past Surgical History: Cholecystectomy Additional Past Surgical History / Comment(s): BONE GRAFT, hand surgery. Cardiac ablation. Colonoscopy 2012. Past Anesthesia/Blood Transfusion Reactions: No Reported Reaction Past Psychological History: Bipolar Smoking Status: Current every day smoker Past Alcohol Use History: Rare Past Drug Use History: Opiates - Past Family History Mother Family Medical History: Cancer Additional Family Medical History / Comment(s): Multiple myeloma. Maternal grandmother had colon cancer. Father Family Medical History: Cancer, Diabetes Mellitus Additional Family Medical History / Comment(s): Skin cancer. Paternal aunt had breast cancer and another paternal aunt had breast cancer and colon cancer. Brother(s) Family Medical History: Myocardial Infarction ([place]) Additional Family Medical History / Comment(s): of an [place]. Obesity. General Exam Limitations: no limitations General appearance: alert, in no apparent distress Head exam: Present: atraumatic, normocephalic, normal inspection Eye exam: Present: normal appearance, PERRL, EOMI. Absent: scleral icterus, conjunctival injection, periorbital swelling ENT exam: Present: normal exam, normal oropharynx, mucous membranes moist Neck exam: Present: normal inspection, full ROM. Absent: tenderness, meningismus, lymphadenopathy Respiratory exam: Present: normal lung sounds bilaterally. Absent: respiratory distress, wheezes, rales, rhonchi, stridor Cardiovascular Exam: Present: regular rate, normal rhythm, normal heart sounds. Absent: systolic murmur, diastolic murmur, rubs, gallop, clicks GI/Abdominal exam: Present: soft, tenderness (Right lower quadrant), normal bowel sounds. Absent: distended, guarding, rebound, rigid Back exam: Absent: CVA tenderness (R), CVA tenderness (L) Course Vital Signs 05/27/22 10:20 Temperature 98.9 F Pulse Rate 114 H Respiratory 18 Rate Blood Pressure 121/74 O2 Sat by Pulse 95 Oximetry Medical Decision Making - Medical Decision Making 52-year-old female presented for abdominal pain. Received phone call from radiologist patient has acute appendicitis. Patient be admitted started on IV antibiotics. - Lab Data Result diagrams: 05/27/22 10:59 05/27/22 10:59 Lab Results 05/27/22 05/27/22 05/27/22 Range/Units 10:59 10:59 10:59 WBC 16.0 H (3.8-10.6) k/uL RBC 4.75 (3.80-5.40) m/uL Hgb 14.1 (11.4-16.0) gm/dL Hct 43.0 (34.0-46.0) % MCV 90.6 (80.0-100.0) fL MCH 29.6 (25.0-35.0) pg MCHC 32.7 (31.0-37.0) g/dL RDW 13.5 (11.5-15.5) % Plt Count 320 (150-450) k/uL MPV 7.8 Neutrophils % 83 % Lymphocytes % 11 % Monocytes % 4 % Eosinophils % 1 % Basophils % 0 % Neutrophils # 13.3 H (1.3-7.7) k/uL Lymphocytes # 1.8 (1.0-4.8) k/uL Monocytes # 0.6 (0-1.0) k/uL Eosinophils # 0.2 (0-0.7) k/uL Basophils # 0.1 (0-0.2) k/uL Sodium 138 (137-145) mmol/L Potassium 4.1 (3.5-5.1) mmol/L Chloride 104 (98-107) mmol/L Carbon Dioxide 21 L (22-30) mmol/L Anion Gap 13 mmol/L BUN 8 (7-17) mg/dL Creatinine 0.95 (0.52-1.04) mg/dL Est GFR (CKD-EPI)AfAm 79 (>60 ml/min/1.73 sqM) Est GFR (CKD-EPI)NonAf 69 (>60 ml/min/1.73 sqM) Glucose 121 H (74-99) mg/dL Plasma Lactic Acid Jamar (0.7-2.0) mmol/L Calcium 9.2 (8.4-10.2) mg/dL Total Bilirubin 0.3 (0.2-1.3) mg/dL AST 35 (14-36) U/L ALT 55 H (4-34) U/L Alkaline Phosphatase 117 (38-126) U/L Total Protein 7.5 (6.3-8.2) g/dL Albumin 4.6 (3.5-5.0) g/dL Lipase 74 (23-300) U/L Urine Color Yellow Urine Appearance Cloudy H (Clear) Urine pH 6.0 (5.0-8.0) Ur Specific [place] 1.026 (1.001-1.035) Urine Protein 1+ H (Negative) Urine Glucose (UA) Negative (Negative) Urine Ketones Negative (Negative) Urine Blood Negative (Negative) Urine Nitrite Negative (Negative) Urine Bilirubin Negative (Negative) Urine Urobilinogen 2.0 (<2.0) mg/dL Ur Leukocyte Esterase Small H (Negative) Urine RBC 1 (0-5) /hpf Urine WBC 7 H (0-5) /hpf Ur Squamous Epith Cells 10 H (0-4) /hpf Urine Bacteria Occasional H (None) /hpf Urine Mucus Occasional H (None) /hpf 05/27/22 Range/Units 10:59 WBC (3.8-10.6) k/uL RBC (3.80-5.40) m/uL Hgb (11.4-16.0) gm/dL Hct (34.0-46.0) % MCV (80.0-100.0) fL MCH (25.0-35.0) pg MCHC (31.0-37.0) g/dL RDW (11.5-15.5) % Plt Count (150-450) k/uL MPV Neutrophils % % Lymphocytes % % Monocytes % % Eosinophils % % Basophils % % Neutrophils # (1.3-7.7) k/uL Lymphocytes # (1.0-4.8) k/uL Monocytes # (0-1.0) k/uL Eosinophils # (0-0.7) k/uL Basophils # (0-0.2) k/uL Sodium (137-145) mmol/L Potassium (3.5-5.1) mmol/L Chloride (98-107) mmol/L Carbon Dioxide (22-30) mmol/L Anion Gap mmol/L BUN (7-17) mg/dL Creatinine (0.52-1.04) mg/dL Est GFR (CKD-EPI)AfAm (>60 ml/min/1.73 sqM) Est GFR (CKD-EPI)NonAf (>60 ml/min/1.73 sqM) Glucose (74-99) mg/dL Plasma Lactic Acid Jamar 1.5 (0.7-2.0) mmol/L Calcium (8.4-10.2) mg/dL Total Bilirubin (0.2-1.3) mg/dL AST (14-36) U/L ALT (4-34) U/L Alkaline Phosphatase (38-126) U/L Total Protein (6.3-8.2) g/dL Albumin (3.5-5.0) g/dL Lipase (23-300) U/L Urine Color Urine Appearance (Clear) Urine pH (5.0-8.0) Ur Specific [place] (1.001-1.035) Urine Protein (Negative) Urine Glucose (UA) (Negative) Urine Ketones (Negative) Urine Blood (Negative) Urine Nitrite (Negative) Urine Bilirubin (Negative) Urine Urobilinogen (<2.0) mg/dL Ur Leukocyte Esterase (Negative) Urine RBC (0-5) /hpf Urine WBC (0-5) /hpf Ur Squamous Epith Cells (0-4) /hpf Urine Bacteria (None) /hpf Urine Mucus (None) /hpf Disposition Clinical Impression: Acute appendicitis Disposition: ADMITTED IP TO THIS [facility] Condition: Fair Referrals: Dima Morales MD [Primary Care Provider] - 1-2 days Time of Disposition: 12:15
--- NOTE | 2022-05-27 12:15 | CT ---
EXAMINATION TYPE: CT abdomen pelvis wo con DATE OF EXAM: 05/27/2022 COMPARISON: 05/22/2012 HISTORY: RLQ pain CT DLP: 947 mGycm Automated exposure control for dose reduction was used. TECHNIQUE: Helical acquisition of images was performed from the lung bases through the pelvis. FINDINGS: LUNG BASES: Subsegmental atelectasis bilaterally. LIVER/GB: Diffuse low attenuation throughout the liver with hepatomegaly correlate steatosis. Postsur gical changes compatible with previous cholecystectomy. PANCREAS: No significant abnormality is seen. SPLEEN: No significant abnormality is seen. ADRENALS: No significant abnormality is seen. KIDNEYS: No significant abnormality is seen. FREE AIR: No free air is visualized ADENOPATHY: None visualized. OSSEOUS STRUCTURES: Hypertrophic and degenerative changes of the spine. BOWEL: There is a prominent bowel loop in the right lower quadrant with surrounding inflammatory brady nge. Favor acute appendicitis over terminal ileitis correlate clinically. OTHER: Aorta normal caliber. Atherosclerotic changes seen. Uterus is noted with symmetric appearing s ize of the ovaries bilaterally IMPRESSION: 1. Marked prominence tubular structure right lower quadrant with surrounding inflammatory changes. Wo uld favor acute appendicitis over terminal ileitis correlate clinically. 2. Hepatomegaly with hepatic steatosis. 3. Postcholecystectomy changes
[2022-05-27] MEDS ORDERED: HYDROmorphone 0.5 MG/0.5 ML SYRINGE IVP STA (12:33)
[2022-05-27] MEDS ORDERED: ONDANSETRON 4 MG/2 ML VIAL IVP ONE (13:02)
[2022-05-27] MEDS ORDERED: DEXAMETHASONE SOD PHOSPHATE 4 MG/ML 1 ML VIAL IV ONE (13:02)
[2022-05-27] MEDS ORDERED: ONDANSETRON 4 MG/2 ML VIAL IVP PRN ×2 (13:07→15:04)
--- NOTE | 2022-05-27 13:07 | P.GSHP ---
History of Present Illness H&P Date: 05/27/22 CHIEF COMPLAINT: Abdominal pain HISTORY OF PRESENT ILLNESS: This is a 52-year-old female who presented to hospital with complaints of abdominal pain that started at 10:00 last night. Patient reports that the pain was initially located at her belly button and then radiated down to the right lower quadrant. Patient reports that the pain has been constant. She was having dry heaves. She had poor oral intake. Denies any fever, chills or sweats. Her prior surgical history includes cholecystect misti. She had a computed tomography scan completed showing marked prominence tubular structure right lower quadrant with surrounding inflammatory changes. Would favor acute appendicitis over terminal ileitis correlate clinically. Hepatomegaly with hepatic steatosis. Postcholecystectomy changes. She did have elevated white count. Cardiac history mild mitral regurgitation and tricuspid regurgitation. PAST MEDICAL HISTORY: GERD, hyperlipidemia, thyroid disorder, POTS syndrome, hypothyroidism, bipolar PAST SURGICAL HISTORY: Cholecystectomy, cardiac ablation MEDICATIONS: See list. ALLERGIES: See list. SOCIAL HISTORY: No illicit drug use. Nicotine dependence REVIEW OF SYSTEMS: CONSTITUTIONAL: Denies fever or chills. HEENT: Denies blurred vision, vision changes, or eye pain. Denies hemoptysis CARDIOVASCULAR: Denies chest pain or pressure. RESPIRATORY: No shortness of breath. GASTROINTESTINAL: See HPI for pertinent findings HEMATOLOGIC: Denies bleeding disorders. GENITOURINARY: Denies any blood in urine or increased urinary frequency. SKIN: Denies pruitis. Denies rash. PHYSICAL EXAM: VITAL SIGNS: Reviewed GENERAL: Well-developed in no acute distress. HEENT: No sclera icterus. Extraocular movements grossly intact. Moist buccal mucosa. Head is atraumatic, normocephalic. No nasal drainage. ABDOMEN: Soft. Nondistended. Tenderness with palpation to right lower quadrant. NEUROLOGIC: Alert and oriented. Cranial nerves II through XII grossly intact. LABORATORY DATA: WBC 16 Hgb 14.1 platelets 320 Na 138 potassium 4.1 creatinine 0.95 Lactic acid 1.5 AST 35 ALT 55 alk phos 117 Lipase 74 Urinalysis negative for infection IMAGING: Computed tomography scan findings as stated above ASSESSMENT: 1. Acute appendicitis PLAN: -Patient scheduled for laparoscopic appendectomy today with Dr. 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 Signing provider agrees with the documented findings, assessment, and plan of care. Past Medical History Past Medical History: GERD/Reflux, Hyperlipidemia, Mitral Valve Prolapse (MVP), Thyroid Disorder Additional Past Medical History / Comment(s): POTS syndrome, brain cyst, LEAKY HEART VALVE. 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 She did have cryotherapy of the cervix years ago. History of Any Multi-Drug Resistant Organisms: None Reported Past Surgical History: Cholecystectomy Additional Past Surgical History / Comment(s): BONE GRAFT, hand surgery. Cardiac ablation. Colonoscopy 2012. Past Anesthesia/Blood Transfusion Reactions: No Reported Reaction Past Psychological History: Bipolar Smoking Status: Current every day smoker Past Alcohol Use History: Rare Past Drug Use History: Opiates - Past Family History Mother Family Medical History: Cancer Additional Family Medical History / Comment(s): Multiple myeloma. Maternal grandmother had colon cancer. Father Family Medical History: Cancer, Diabetes Mellitus Additional Family Medical History / Comment(s): Skin cancer. Paternal aunt had breast cancer and another paternal aunt had breast cancer and colon cancer. Brother(s) Family Medical History: Myocardial Infarction ([place]) Additional Family Medical History / Comment(s): of an [place]. Obesity. Medications and Allergies Home Medications Medication Instructions Recorded Confirmed Type Levothyroxine Sodium [Synthroid] 50 mcg PO AC-BRKFST 05/28/17 05/27/22 History Omeprazole [PriLOSEC] 40 mg PO DAILY 02/13/22 05/27/22 History Rosuvastatin [Crestor] 10 mg PO HS 02/13/22 05/27/22 History Varenicline [Chantix Continuing 1 mg PO BID 02/13/22 05/27/22 History Pack] lamoTRIgine [LaMICtal] 150 mg PO BID 02/13/22 05/27/22 History QUEtiapine [SEROquel] 600 mg PO HS 05/27/22 05/27/22 History Venlafaxine HCl ER [Effexor Xr] 150 mg PO DAILY 05/27/22 05/27/22 History Allergies Allergy/AdvReac Type Severity Reaction Status Date / Time No Known Allergies Allergy Verified 05/27/22 12:40 Surgical - Exam Vital Signs Temp Pulse Resp BP Pulse Ox 98.9 F 114 H 18 121/74 95 05/27/22 10:20 05/27/22 10:20 05/27/22 10:20 05/27/22 10:20 05/27/22 10:20 Results - Labs 05/27/22 10:59 05/27/22 10:59 Abnormal Lab Results - Last 24 Hours (Table) 05/27/22 05/27/22 05/27/22 Range/Units 10:59 10:59 10:59 WBC 16.0 H (3.8-10.6) k/uL Neutrophils # 13.3 H (1.3-7.7) k/uL Carbon Dioxide 21 L (22-30) mmol/L Glucose 121 H (74-99) mg/dL ALT 55 H (4-34) U/L Urine Appearance Cloudy H (Clear) Urine Protein 1+ H (Negative) Ur Leukocyte Esterase Small H (Negative) Urine WBC 7 H (0-5) /hpf Ur Squamous Epith Cells 10 H (0-4) /hpf Urine Bacteria Occasional H (None) /hpf Urine Mucus Occasional H (None) /hpf Diabetes panel 05/27/22 Range/Units 10:59 Sodium 138 (137-145) mmol/L Potassium 4.1 (3.5-5.1) mmol/L Chloride 104 (98-107) mmol/L Carbon Dioxide 21 L (22-30) mmol/L BUN 8 (7-17) mg/dL Creatinine 0.95 (0.52-1.04) mg/dL Glucose 121 H (74-99) mg/dL Calcium 9.2 (8.4-10.2) mg/dL AST 35 (14-36) U/L ALT 55 H (4-34) U/L Alkaline Phosphatase 117 (38-126) U/L Total Protein 7.5 (6.3-8.2) g/dL Albumin 4.6 (3.5-5.0) g/dL Calcium panel 05/27/22 Range/Units 10:59 Calcium 9.2 (8.4-10.2) mg/dL Albumin 4.6 (3.5-5.0) g/dL Pituitary panel 05/27/22 Range/Units 10:59 Sodium 138 (137-145) mmol/L Potassium 4.1 (3.5-5.1) mmol/L Chloride 104 (98-107) mmol/L Carbon Dioxide 21 L (22-30) mmol/L BUN 8 (7-17) mg/dL Creatinine 0.95 (0.52-1.04) mg/dL Glucose 121 H (74-99) mg/dL Calcium 9.2 (8.4-10.2) mg/dL Adrenal panel 05/27/22 Range/Units 10:59 Sodium 138 (137-145) mmol/L Potassium 4.1 (3.5-5.1) mmol/L Chloride 104 (98-107) mmol/L Carbon Dioxide 21 L (22-30) mmol/L BUN 8 (7-17) mg/dL Creatinine 0.95 (0.52-1.04) mg/dL Glucose 121 H (74-99) mg/dL Calcium 9.2 (8.4-10.2) mg/dL Total Bilirubin 0.3 (0.2-1.3) mg/dL AST 35 (14-36) U/L ALT 55 H (4-34) U/L Alkaline Phosphatase 117 (38-126) U/L Total Protein 7.5 (6.3-8.2) g/dL Albumin 4.6 (3.5-5.0) g/dL
[2022-05-27] MEDS ORDERED: LACTATED RINGERS 1,000 ML IV ONE (13:23)
[2022-05-27] MEDS ORDERED: HEPARIN SODIUM,PORCINE/PF 5,000 UNIT/0.5 ML SYRINGE SQ ONE (14:00)
[2022-05-27] MEDS ORDERED: HEPARIN SODIUM,PORCINE 5,000 UNIT/ML 1 ML VIAL SQ ONE (14:02)
[2022-05-27] MEDS ORDERED: LIDOCAINE 2% INJ 20 MG/ML (2 ML VIAL) ONE (14:10)
[2022-05-27] MEDS ORDERED: MIDAZOLAM 2 MG/2 ML VIAL ONE (14:10)
[2022-05-27] MEDS ORDERED: NEOSTIGMINE 1 MG/ML 10 ML VIAL ONE (14:10)
[2022-05-27] MEDS ORDERED: ROCURONIUM 10 MG/ML (5 ML VIAL) IV ONE (14:10)
[2022-05-27] MEDS ORDERED: SUCCINYLCHOLINE CHLORIDE 200 MG/10 ML VIAL IV ONE (14:10)
[2022-05-27] MEDS ORDERED: GLYCOPYRROLATE 0.2 MG/ML 2 ML VIAL ONE (14:10)
[2022-05-27] MEDS ORDERED: PROPOFOL 10 MG/ML 20 ML VIAL IV ONE (14:10)
[2022-05-27] MEDS ORDERED: fentaNYL (PF) 50 MCG/ML 2 ML AMP ONE (14:10)
[2022-05-27] MEDS ORDERED: BUPIVACAIN-EPI 0.25%-1:200,000 30 ML VIAL SQ ONE (14:40)
[2022-05-27] MEDS ORDERED: NALOXONE 0.4 MG/ML 1 ML VIAL IV PRN (15:04)
[2022-05-27] MEDS ORDERED: ACETAMINOPHEN TAB 325 MG TAB PO PRN (15:04)
[2022-05-27] MEDS ORDERED: METOCLOPRAMIDE 5 MG/ML 2 ML VIAL IVP PRN (15:04)
--- NOTE | 2022-05-27 15:04 | P.OP ---
Date of Procedure: 05/27/22 Preoperative Diagnosis: Acute appendicitis Postoperative Diagnosis: Acute appendicitis Procedure(s) Performed: Laparoscopic appendectomy Anesthesia: WILLIAM Surgeon: Víctor Dietz Estimated Blood Loss (ml): 5 Pathology: other (Appendix) Condition: stable Disposition: PACU Description of Procedure: The patient's placed on the operating table in the supine position. The patient received general anesthesia. The abdomen was prepped and draped in the usual sterile fashion. The skin was anesthetized 1% local Xylocaine at the trocar sites. Using an 11 blade the skin was incised at the umbilicus. The umbilicus was grasped with a [place] clamp and then a Veress needle was placed into the peritoneal cavity. Position of the Veress needle was confirmed with positive drop test. After adequate insufflation a 5 mm trocar was placed into the peritoneal cavity. The abdomen was further insufflated. And then the laparoscope was placed in the peritoneal cavity. Next a 5 mm trocar was placed in the midline suprapubic position. And then a 10 mm trocar was placed in the midline epigastric position. The patient was rotated with the right side up and in Trendelenburg. The appendix was visualized. The appendix appeared to be inflamed. The appendix was grasped and then using the Harmonic scissors the mesoappendix was divided. A PDS Endoloop was then placed around the base of the appendix. And then the appendix was divided using Harmonic scissors. The appendix was placed into an Endo Catch and brought out through the 10 mm trocar site. The abdomen was irrigated. There is no bleeding seen. The trochars withdrawn. The skin was closed interrupted 3-0 Monocryl suture. Dermabond dressing was applied. Patient was sent to recovery room in stable condition.
[2022-05-27] MEDS: LACTATED RINGERS 1,000 ML IV ONE ×3 (16:00→17:01)
[2022-05-27] MEDS ORDERED: PIPERACILLIN-TAZOBACTAM 3.375 GM in SODIUM CHLORIDE 0.9% 100 ML IVPB SCH (16:00)
[2022-05-27] MEDS: HYDROmorphone 0.5 MG/0.5 ML SYRINGE IVP PRN ×2 (17:42→22:04)
[2022-05-27] MEDS: SODIUM CHLORIDE 0.9% 1,000 ML IV SCH ×2 (18:29→19:34)
[2022-05-27] MEDS: KETOROLAC 15 MG/ML 1 ML VIAL IVP SCH ×2 (18:58→23:05)
[2022-05-27] MEDS: PIPERACILLIN-TAZOBACTAM 3.375 GM in SODIUM CHLORIDE 0.9% 100 ML IVPB SCH (19:34)
[2022-05-28] MEDS: KETOROLAC 15 MG/ML 1 ML VIAL IVP SCH ×2 (04:58→11:35)
[2022-05-28] MEDS: SODIUM CHLORIDE 0.9% 1,000 ML IV SCH ×2 (04:58→11:36)
[2022-05-28] MEDS: PIPERACILLIN-TAZOBACTAM 3.375 GM in SODIUM CHLORIDE 0.9% 100 ML IVPB SCH ×2 (04:58→12:30)
[2022-05-28] MEDS ORDERED: HYDROmorphone 0.5 MG/0.5 ML SYRINGE IVP PRN (07:00)
[2022-05-28 07:38] VITALS: BP 106/68; PULSE 80; RESP 16; TEMP 97.8
[2022-05-28] MEDS ORDERED: HYDROcodone/APAP 5-325MG 1 EACH TAB PO PRN (08:03)
[2022-05-28] MEDS ORDERED: ENOXAPARIN 40 MG/0.4 ML SYRINGE SQ SCH (09:00)
[2022-05-28 09:09] LABS: Basophils % (A) 0 %; Eosinophils # (A) 0.1 k/uL (0-0.7); Eosinophils % (A) 1 %; HCT 37.4 % (34.0-46.0); HGB 12.2 gm/dL (11.4-16.0); Lymphocytes # (A) 2.5 k/uL (1.0-4.8); Lymphocytes % (A) 25 %; MCH 30.1 pg (25.0-35.0); MCHC 32.5 g/dL (31.0-37.0); MCV 92.7 fL (80.0-100.0); Mean Platelet Volume 7.8; Monocytes # (A) 0.4 k/uL (0-1.0); Monocytes % (A) 4 %; Neutrophils # (A) 6.8 k/uL (1.3-7.7); Neutrophils % (A) 68 %; Platelet Count 301 k/uL (150-450); RBC 4.03 m/uL (3.80-5.40); RDW 13.6 % (11.5-15.5)
--- NOTE | 2022-05-28 11:45 | P.DS ---
Providers Date of admission: 05/27/22 13:07 Expected date of discharge: 05/28/22 Attending physician: Víctor Dietz Primary care physician: Dima Morales MD Hospital Course: Discharge diagnosis 1. Acute appendicitis status post laparoscopic appendectomy Hospital course This is a 52-year-old female who presented to hospital with complaints of abdominal pain. Patient reports that the pain was initially located at her belly button and then radiated down to the right lower quadrant. Patient reports that the pain has been constant. She was having dry heaves. She had poor oral intake. Denies any fever, chills or sweats. Her prior surgical history includes cholecystectomy. She had a computed tomography scan completed showing marked prominence tubular structure right lower quadrant with surrounding inflammatory changes. Would favor acute appendicitis over terminal ileitis correlate clinically. Hepatomegaly with hepatic steatosis. Postcholecystectomy changes. She did have elevated white count. Patient is status post laparoscopic appendectomy. She is tolerating diet. She is up and ambulating. She is having flatus. She is afebrile. White count has normalized. Her pain is controlled. She is stable for discharge. Please refer to chart for any further details. 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 Signing provider agrees with the documented findings, assessment, and plan of care. Patient Condition at Discharge: Stable Plan - Discharge Summary New Discharge Prescriptions: New HYDROcodone/APAP 5-325MG [Jesse 5-325] 1 tab PO Q6HR PRN 3 Days #12 tab PRN Reason: Pain Docusate [Colace] 100 mg PO BID #30 capsule Continue Levothyroxine Sodium [Synthroid] 50 mcg PO AC-BRKFST Varenicline [Chantix Continuing Pack] 1 mg PO BID lamoTRIgine [LaMICtal] 150 mg PO BID Rosuvastatin [Crestor] 10 mg PO HS Omeprazole [PriLOSEC] 40 mg PO DAILY Venlafaxine HCl ER [Effexor XR] 150 mg PO DAILY QUEtiapine [SEROquel] 600 mg PO HS Discharge Medication List Levothyroxine Sodium [Synthroid] 50 mcg PO AC-BRKFST 05/28/17 [History] Omeprazole [PriLOSEC] 40 mg PO DAILY 02/13/22 [History] Rosuvastatin [Crestor] 10 mg PO HS 02/13/22 [History] Varenicline [Chantix Continuing Pack] 1 mg PO BID 02/13/22 [History] lamoTRIgine [LaMICtal] 150 mg PO BID 02/13/22 [History] QUEtiapine [SEROquel] 600 mg PO HS 05/27/22 [History] Venlafaxine HCl ER [Effexor XR] 150 mg PO DAILY 05/27/22 [History] Docusate [Colace] 100 mg PO BID #30 capsule 05/28/22 [Rx] HYDROcodone/APAP 5-325MG [Jesse 5-325] 1 tab PO Q6HR PRN 3 Days #12 tab 05/28/22 [Rx] Follow up Appointment(s)/Referral(s): Dima Morales MD [Primary Care Provider] - 1-2 days Víctor Dietz MD [STAFF PHYSICIAN] - 1 Week Activity/Diet/Wound Care/Special Instructions: No driving while taking Jesse No lifting over 10 pounds Shower daily. No soaking or tub baths for 2 weeks Very light activity until you are reevaluated at your follow up appointment with your surgeon Discharge Disposition: HOME SELF-CARE
== END 2022-05-28 13:48 | disposition home or self-care (01) ==
LOC: EC 10:09 → 4SSUR 13:07 → 6NMEDSUR 16:53
PROVIDERS: ADMIT Surgery; ATTEND Surgery
DX: K35.80 Unspecified acute appendicitis (principal); K76.0 Fatty (change of) liver, not elsewhere classified; I34.1 Nonrheumatic mitral (valve) prolapse; I49.8 Other specified cardiac arrhythmias; E78.5 Hyperlipidemia, unspecified; K21.9 Gastro-esophageal reflux disease without esophagitis; E03.9 Hypothyroidism, unspecified; G93.0 Cerebral cysts; F31.9 Bipolar disorder, unspecified; F17.210 Nicotine dependence, cigarettes, uncomplicated; Z79.890 Hormone replacement therapy; Z79.899 Other long term (current) drug therapy; Z90.49 Acquired absence of other specified parts of digestive tract; Z98.890 Other specified postprocedural states; Z80.7 Family history of other malignant neoplasms of lymphoid, hematopoietic and related tissues; Z80.0 Family history of malignant neoplasm of digestive organs; Z83.3 Family history of diabetes mellitus; Z80.8 Family history of malignant neoplasm of other organs or systems; Z80.3 Family history of malignant neoplasm of breast; Z82.49 Family history of ischemic heart disease and other diseases of the circulatory system
CPT/HCPCS: 96361; 96374; 96375; 99285; 36415; 81025 ×2; 88304; 80053; 83605; 83690; 85025 ×2; 81001; 87040; 74176; 44970; G0378; J2543 ×2; J2250; J0330; J1644; J1100; J2710; J2405; J1650; J3010; J1885 ×2; J2704; J1170; J2001

== ENCOUNTER 2022-07-01 11:01 | Day surgery (SDC) | payer BC, MEDICARE ==
[2022-06-28 12:04] VITALS: BMI 35.2
[~2022-07-01 11:01] MED LIST changes: +LACTATED RINGERS 1,000 ML IV SCH; +LIDOCAINE 1% (10MG/ML) FOR IV START INTRADERMA PRN; -SODIUM CHLORIDE 0.9% 1,000 ML IV SCH
[2022-07-01 11:26] VITALS: TEMP 97.9
[2022-07-01] MEDS ORDERED: LACTATED RINGERS 1,000 ML IV ONE (11:26)
[2022-07-01] MEDS ORDERED: PROPOFOL 10 MG/ML 20 ML VIAL IV ONE (12:10)
--- NOTE | 2022-07-01 12:17 | P.GSHP ---
History of Present Illness H&P Date: 07/01/22 Chief Complaint: Screening Colonoscopy Is a 52-year-old female presents today for screening colonoscopy. Patient denies a significant GI complaints. Past Medical History Past Medical History: GERD/Reflux, Hyperlipidemia, Mitral Valve Prolapse (MVP), Supraventricular Tachycardia (SVT), Thyroid Disorder Additional Past Medical History / Comment(s): POTS syndrome, brain cyst, Hypothyroidism., states boutts of diarrhea after eating and constipation. History of Any Multi-Drug Resistant Organisms: MRSA Date of last positivie culture/infection: 15 yrs ago MDRO Source:: surgery right arm Past Surgical History: Appendectomy, Cardiac Ablation, Cholecystectomy Additional Past Surgical History / Comment(s): bone graft finger right hand., Colonoscopy 2013., vascular surgery right arm x2 (aneurysm & infection)., cryotherapy of cervix. Past Anesthesia/Blood Transfusion Reactions: No Reported Reaction Past Psychological History: Bipolar Smoking Status: Current every day smoker Past Alcohol Use History: None Reported Additional Past Alcohol Use History / Comment(s): smokes 1/2 ppd, started smoking age 10. Past Drug Use History: Opiates Additional Drug Use History / Comment(s): History of opiate abuse but has been free of opiates since 2009. - Past Family History Mother Family Medical History: Cancer Additional Family Medical History / Comment(s): Multiple myeloma. Maternal grandmother had colon cancer. Father Family Medical History: AFIB, Cancer, Diabetes Mellitus, Hyperlipidemia Additional Family Medical History / Comment(s): Skin cancer. Paternal aunt had breast cancer and another paternal aunt had breast cancer and colon cancer Brother(s) Family Medical History: Myocardial Infarction ([place]) Additional Family Medical History / Comment(s): of an [place]. Obesity. Medications and Allergies Home Medications Medication Instructions Recorded Confirmed Type Levothyroxine Sodium [Synthroid] 50 mcg PO AC-BRKFST 05/28/17 06/28/22 History Omeprazole [PriLOSEC] 40 mg PO DAILY 02/13/22 06/28/22 History Rosuvastatin [Crestor] 10 mg PO HS 02/13/22 06/28/22 History Varenicline [Chantix Continuing 1 mg PO BID 02/13/22 06/28/22 History Pack] lamoTRIgine [LaMICtal] 150 mg PO BID 02/13/22 06/28/22 History QUEtiapine [SEROquel] 600 mg PO HS 05/27/22 06/28/22 History Venlafaxine HCl ER [Effexor XR] 150 mg PO DAILY 05/27/22 06/28/22 History Fluticasone Nasal [place] [Flonase 2 spray EA NOSTRIL DAILY 06/28/22 06/28/22 History Nasal [place]] Allergies Allergy/AdvReac Type Severity Reaction Status Date / Time No Known Allergies Allergy Verified 06/28/22 11:39 Surgical - Exam Vital Signs Temp Pulse Resp BP Pulse Ox 97.9 F 98 18 130/69 99 07/01/22 11:25 07/01/22 11:25 07/01/22 11:25 07/01/22 11:25 07/01/22 11:25 - General well developed, well nourished, no distress - Eyes PERRL - ENT normal pinna - Neck no masses - Respiratory normal expansion - Cardiovascular Rhythm: regular - Abdomen Abdomen: soft, non tender Assessment and Plan Assessment: We'll perform screening colonoscopy.
--- NOTE | 2022-07-01 12:30 | P.OP ---
Date of Procedure: 07/01/22 Preoperative Diagnosis: Screening colonoscopy Postoperative Diagnosis: Normal colon Procedure(s) Performed: Colonoscopy Anesthesia: MAC Surgeon: Víctor Dietz Pathology: none sent Condition: stable Disposition: PACU Description of Procedure: The patient's placed on the endoscopy table in the lateral position. She received IV sedation. Digital rectal exam performed which revealed no abnormality. The flexible colonoscope was then placed patient anus and passed throughout the entire colon. The ileocecal valve was visualized. The cecum, ascending and transverse colon appeared normal. The descending and sigmoid colon appeared normal. Scope was then brought back the rectum and this appeared normal. Scope withdrawn for patient.
[2022-07-01 12:48] VITALS: BP 109/79; PULSE 90; RESP 18
== END 2022-07-01 13:13 | disposition home or self-care (01) ==
LOC: ORWHC2ENDO 11:01
PROVIDERS: ATTEND Surgery
DX: Z12.11 Encounter for screening for malignant neoplasm of colon (principal); K21.9 Gastro-esophageal reflux disease without esophagitis; E78.5 Hyperlipidemia, unspecified; I34.1 Nonrheumatic mitral (valve) prolapse; E07.9 Disorder of thyroid, unspecified; E03.9 Hypothyroidism, unspecified; I47.1 Supraventricular tachycardia; K59.00 Constipation, unspecified; Z90.89 Acquired absence of other organs; Z90.49 Acquired absence of other specified parts of digestive tract; F17.210 Nicotine dependence, cigarettes, uncomplicated; Z80.0 Family history of malignant neoplasm of digestive organs; Z83.3 Family history of diabetes mellitus; Z82.49 Family history of ischemic heart disease and other diseases of the circulatory system; Z80.3 Family history of malignant neoplasm of breast; Z79.899 Other long term (current) drug therapy
CPT/HCPCS: 45378; J2704

== ENCOUNTER → 2022-09-04 | Outpatient (CLI) | payer BC, MEDICARE ==
[2022-09-04 16:06] LABS: Basophils # (A) 0.06 X 10*3/uL (0.00-0.10); Basophils % (A) 0.7 %; Eosinophils # (A) 0.24 X 10*3/uL (0.04-0.35); HCT 40.8 % (37.2-46.3); HGB 13.3 g/dL (12.0-15.0); Immature Grans, Automated 0.4 %; Lymphocytes # (A) 3.21 X 10*3/uL (0.90-5.00); Lymphocytes % (A) 39.8 %; MCH 29.6 pg (27.0-32.0); MCHC 32.6 g/dL (32.0-37.0); MCV 90.9 fL (80.0-97.0); Mean Platelet Volume 10.1 fL (9.5-12.2); Monocytes % (A) 6.2 %; NRBC Per 100 WBC 0 /100 WBCS (0.0-0.0); Neutrophils # (A) 4.03 X 10*3/uL (1.80-7.70); Neutrophils % (A) 49.9 %; Platelet Count 383 X 10*3/uL (140-440); RBC 4.49 X 10*6/uL (4.10-5.20); RDW 13.4 % (11.5-14.5); WBC 8.07 X 10*3/uL (4.50-10.00)
== END | disposition home or self-care (01) ==
LOC: LABWHC1 09:28
PROVIDERS: ATTEND Surgery
DX: Z01.812 Encounter for preprocedural laboratory examination (principal)
CPT/HCPCS: 36415; 85025

== ENCOUNTER 2022-09-10 07:01 | Day surgery (SDC) | payer BC, MEDICARE ==
[~2022-09-10 07:01] MED LIST changes: +ACETAMINOPHEN TAB 500 MG TAB PO PRN; +DEXAMETHASONE SOD PHOSPHATE 4 MG/ML 1 ML VIAL IV ONE; +HEPARIN SODIUM,PORCINE/PF 5,000 UNIT/0.5 ML SYRINGE SQ PRN; -LIDOCAINE 1% (10MG/ML) FOR IV START INTRADERMA PRN; +ONDANSETRON 4 MG/2 ML VIAL IVP ONE
[2022-09-10 08:10] LABS: Glucose,Whole Blood 101 mg/dL (70-110)
[2022-09-10] MEDS ORDERED: MIDAZOLAM 2 MG/2 ML VIAL IVP ONE (08:49)
--- NOTE | 2022-09-10 09:41 | P.GSHP ---
History of Present Illness H&P Date: 09/10/22 Chief Complaint: Incisional hernia This a 52-year-old female who presents today for laparoscopic robotic system repair of incisional hernia. Patient developed a hernia in her epigastric trocar site Past Medical History Past Medical History: GERD/Reflux, Hyperlipidemia, Mitral Valve Prolapse (MVP), Supraventricular Tachycardia (SVT), Thyroid Disorder Additional Past Medical History / Comment(s): POTS syndrome, brain cyst, Hypothyroidism., states boutts of diarrhea after eating and constipation. History of Any Multi-Drug Resistant Organisms: MRSA Date of last positivie culture/infection: 15 yrs ago MDRO Source:: surgery right arm Past Surgical History: Appendectomy, Cardiac Ablation, Cholecystectomy Additional Past Surgical History / Comment(s): bone graft finger right hand., Colonoscopy 2012., vascular surgery right arm x2 (aneurysm & infection)., cryotherapy of cervix. Past Anesthesia/Blood Transfusion Reactions: No Reported Reaction Smoking Status: Current every day smoker - Past Family History Mother Family Medical History: Cancer Additional Family Medical History / Comment(s): Multiple myeloma. Maternal grandmother had colon cancer. Father Family Medical History: AFIB, Cancer, Diabetes Mellitus, Hyperlipidemia Additional Family Medical History / Comment(s): Skin cancer. Paternal aunt had breast cancer and another paternal aunt had breast cancer and colon cancer Brother(s) Family Medical History: Myocardial Infarction ([place]) Additional Family Medical History / Comment(s): of an [place]. Obesity. Medications and Allergies Home Medications Medication Instructions Recorded Confirmed Type Levothyroxine Sodium [Synthroid] 50 mcg PO AC-BRKFST 05/28/17 09/06/22 History Omeprazole [PriLOSEC] 40 mg PO DAILY 02/13/22 09/06/22 History Rosuvastatin [Crestor] 10 mg PO HS 02/13/22 09/06/22 History lamoTRIgine [LaMICtal] 150 mg PO BID 02/13/22 09/06/22 History QUEtiapine [SEROquel] 600 mg PO HS 05/27/22 09/06/22 History Venlafaxine HCl ER [Effexor XR] 150 mg PO DAILY 05/27/22 09/06/22 History Fluticasone Nasal [place] [Flonase 2 spray EA NOSTRIL DAILY 06/28/22 09/06/22 History Nasal [place]] Allergies Allergy/AdvReac Type Severity Reaction Status Date / Time No Known Allergies Allergy Verified 09/10/22 07:35 Surgical - Exam Vital Signs Temp Pulse Resp BP Pulse Ox 97.0 F L 94 18 124/77 95 09/10/22 07:35 09/10/22 07:35 09/10/22 07:35 09/10/22 07:35 09/10/22 07:35 - General well developed, well nourished, no distress - Eyes PERRL - ENT normal pinna - Neck no masses - Respiratory normal expansion - Cardiovascular Rhythm: regular - Abdomen Abdomen: soft, non tender Hernia: incisional (4 cm hernia located in the epigastric area) Assessment and Plan Assessment: Incisional hernia. We'll perform laparoscopic robotic-assisted repair.
[2022-09-10] MEDS ORDERED: MIDAZOLAM 2 MG/2 ML VIAL ONE (10:03)
[2022-09-10] MEDS ORDERED: SUCCINYLCHOLINE CHLORIDE 200 MG/10 ML VIAL IV ONE (10:03)
[2022-09-10] MEDS ORDERED: LIDOCAINE 4% LTA KIT (4 ML) TOPICAL ONE (10:03)
[2022-09-10] MEDS ORDERED: fentaNYL (PF) 50 MCG/ML 2 ML AMP ONE (10:03)
[2022-09-10] MEDS ORDERED: HYDROmorphone (PF) 1 MG/ML ONE (10:03)
[2022-09-10] MEDS ORDERED: PROPOFOL 10 MG/ML 20 ML VIAL IV ONE (10:03)
[2022-09-10] MEDS ORDERED: KETOROLAC 15 MG/ML 1 ML VIAL ONE (10:03)
[2022-09-10] MEDS ORDERED: ROCURONIUM 10 MG/ML (5 ML VIAL) IV ONE (10:03)
[2022-09-10] MEDS ORDERED: KETAMINE 10 MG/ML 20 ML VIAL ONE (10:03)
[2022-09-10] MEDS ORDERED: PHENYLEPHRINE-0.9% NACL SYG 1,000 MCG/10 ML SYRINGE ONE (10:03)
[2022-09-10] MEDS ORDERED: BUPIVACAIN-EPI 0.25%-1:200,000 30 ML VIAL SQ ONE (10:47)
[2022-09-10] MEDS ORDERED: LACTATED RINGERS 1,000 ML IV ONE (11:31)
--- NOTE | 2022-09-10 11:40 | P.OP ---
Date of Procedure: 09/10/22 Preoperative Diagnosis: Incarcerated incisional hernia Postoperative Diagnosis: Incarcerated incisional hernia Procedure(s) Performed: Laparoscopic robotic-assisted repair of incarcerated incisional hernia Partial omentectomy Anesthesia: WILLIAM Surgeon: Víctor Dietz Estimated Blood Loss (ml): 5 Pathology: other (Omentum) Condition: stable Disposition: PACU Description of Procedure: The patient was placed on the operating table in the supine position. He received general anesthesia. His abdomen was prepped and draped usual fashion. Using a 5 mm optical trocar under direct visualization the peritoneal cavity was entered in the left upLaura Marlon-Reinkeer quadrant. The abdomen was then insufflated. The laparoscope was placed back into the perineal cavity. Next a 8 mm robotic trocar was placed in the left lower quadrant and a 12 mm robotic trocar was placed in the infraumbilical position. The original 5 mm trocar was exchanged for a 8 mm robotic trocar. The patient's placed in reverse Trendelenburg position. The incisional hernias located in the epigastric area. The incisional hernia was visualized. Using hook cautery the peritoneum over the incisional hernia was excised. Incarcerated omentum was dissected free and sent to pathology. The fascial opening was repaired using 0V LOC suture. Next a piece of 11 cm round ventral light ST mesh was placed into the. Cavity and secured with 2 OV lock suture. The patient was undocked the robot. The needles were retrieved. The fascia of the 12 mm trocar site was closed with 0 Ethibond suture. Skin was closed interrupted 3-0 Monocryl suture. Dermabond dressings was applied. Patient tolerated procedure well and was sent to recovery room stable condition.
[2022-09-10 11:44] VITALS: TEMP 98
[2022-09-10] MEDS: HYDROmorphone 0.5 MG/0.5 ML SYRINGE IVP PRN ×4 (12:00→13:02)
[2022-09-10] MEDS ORDERED: diphenhydrAMINE 50 MG/ML 1 ML VIAL IVP ONE (12:02)
[2022-09-10] MEDS ORDERED: IV FLUID CONTINUATION 300 ML IV ONE (13:30)
[2022-09-10 13:33] VITALS: RESP 18
[2022-09-10] MEDS ORDERED: ACETAMINOPHEN TAB 325 MG TAB ONE (13:55)
[2022-09-10] MEDS ORDERED: ACETAMINOPHEN TAB 325 MG TAB PO ONE (13:56)
[2022-09-10 14:05] VITALS: BP 118/78
[2022-09-10] MEDS ORDERED: LACTATED RINGERS 500 ML IV ONE (14:35)
[2022-09-10 15:16] VITALS: PULSE 105
== END 2022-09-10 15:35 | disposition home or self-care (01) ==
LOC: OR 07:01
PROVIDERS: ATTEND Surgery
DX: K43.0 Incisional hernia with obstruction, without gangrene (principal); E78.5 Hyperlipidemia, unspecified; I34.1 Nonrheumatic mitral (valve) prolapse; K21.9 Gastro-esophageal reflux disease without esophagitis; E03.9 Hypothyroidism, unspecified; Z90.49 Acquired absence of other specified parts of digestive tract; F17.200 Nicotine dependence, unspecified, uncomplicated; Z80.0 Family history of malignant neoplasm of digestive organs; Z82.49 Family history of ischemic heart disease and other diseases of the circulatory system; Z83.3 Family history of diabetes mellitus; Z83.49 Family history of other endocrine, nutritional and metabolic diseases; Z80.3 Family history of malignant neoplasm of breast; Z79.899 Other long term (current) drug therapy
CPT/HCPCS: 49655; 64488; 86900; 86901; 88305; 86850; C1781; J2250; J0330; J1200; J1100; J0690; J2405; J3010; J1170 ×2; J1885; J2370; J2704; J1644

== ENCOUNTER → 2022-09-26 | Outpatient (CLI) | payer BC, MEDICARE ==
--- NOTE | 2022-09-26 10:23 | CT ---
EXAMINATION TYPE: CT chest wo con CT DLP: 514.2 mGycm, Automated exposure control for dose reduction was used. DATE OF EXAM: 09/26/2022 10:06 AM COMPARISON: CT chest 02/27/2021 and 10/14/2013. CLINICAL INDICATION:Female, 52 years old with history of R911 lung nodule, lung nodules TECHNIQUE: Multiple axial images were obtained through the chest. Sagittal and coronal reformats were created for review. Contrast used: none. Oral contrast used: none. FINDINGS: LUNGS/ PLEURA: Apical scarring without evidence for suspicious nodule. Similar 3 mm left apical perip heral posterior nodule. No focal consolidation, pneumothorax or pleural effusion. AIRWAY: Patent and unremarkable. HEART: Size within normal limits. MEDIASTINUM: No gross evidence of adenopathy. VASCULATURE: No aortic aneurysm. MUSCULOSKELETAL: No acute osseous abnormalities SOFT TISSUES/LYMPH NODES: Unremarkable. LOWER NECK: No significant findings. UPPER ABDOMEN: Diffuse low-attenuation to the liver parenchyma. The gallbladder is surgically absent. Enlarged left hepatic lobe. IMPRESSION: 1. Unchanged left apical posterior peripheral 3 mm nodule. Continue routine annual lung cancer scree felisha. 2. Hepatic steatosis.
== END | disposition home or self-care (01) ==
LOC: RADCTMAIN 09:47
PROVIDERS: ATTEND Internal Medicine
DX: R91.1 Solitary pulmonary nodule (principal); K76.0 Fatty (change of) liver, not elsewhere classified
CPT/HCPCS: 71250

== ENCOUNTER → 2022-12-17 | Outpatient (CLI) | payer BC, MEDICARE ==
[2022-12-17 22:54] LABS: Basophils # (A) 0.06 X 10*3/uL (0.00-0.10); Basophils % (A) 0.6 %; Eosinophils # (A) 0.19 X 10*3/uL (0.04-0.35); Eosinophils % (A) 1.9 %; HCT 46.1 % (37.2-46.3); HGB 14.1 g/dL (12.0-15.0); Immature Grans, Automated 0.3 %; Lymphocytes % (A) 28.7 %; MCH 28.4 pg (27.0-32.0); MCHC 30.6 g/dL (32.0-37.0); MCV 92.8 fL (80.0-97.0); Mean Platelet Volume 10.5 fL (9.5-12.2); Monocytes # (A) 0.56 X 10*3/uL (0.20-1.00); Monocytes % (A) 5.7 %; NRBC Per 100 WBC 0 /100 WBCS (0.0-0.0); Neutrophils # (A) 6.12 X 10*3/uL (1.80-7.70); Neutrophils % (A) 62.8 %; Platelet Count 348 X 10*3/uL (140-440); RBC 4.97 X 10*6/uL (4.10-5.20); RDW 13.4 % (11.5-14.5); WBC 9.76 X 10*3/uL (4.50-10.00)
== END | disposition home or self-care (01) ==
LOC: LABWHC1 10:12
PROVIDERS: ATTEND Internal Medicine
DX: E78.2 Mixed hyperlipidemia (principal); E03.9 Hypothyroidism, unspecified; R74.01 Elevation of levels of liver transaminase levels
CPT/HCPCS: 36415; 85025

== ENCOUNTER → 2023-01-24 | Outpatient (CLI) | payer BC, MEDICARE ==
--- NOTE | 2023-01-24 08:20 | US ---
EXAMINATION TYPE: US abdomen complete DATE OF EXAM: 01/24/2023 COMPARISON: CT abdomen and pelvis May 27, 2022 CLINICAL INDICATION: Female, 52 years old with history of R74.01 ELEVATED TRANSAMINASE; Elevated live r enzymes , cholecystectomy TECHNIQUE: Multiple sonographic images of the abdomen are obtained. FINDINGS: EXAM MEASUREMENTS: Liver Length: 22.7 cm Gallbladder Wall: Surgically absent CBD: 0.6 cm Spleen: 11.9 cm Right Kidney: 10.6 x 4.1 x 4.1 cm Left Kidney: 9.4 x 4.1 x 4.3 cm CHILI MAKER NOTES: Technical limitations due to large amount of overlying bowel content Pancreas: Obscured by bowel gas Liver: enlarged, attenuating Gallbladder: Surgically absent Evidence for sonographic Gunn's sign: no CBD: appears wnl Spleen: wnl Right Kidney: no evidence of hydronephrosis Left Kidney: no evidence of hydronephrosis Upper IVC: Obscured by overlying bowel gas Abd Aorta: Obscured by overlying bowel gas Pancreas suboptimally evaluated due to overlying bowel gas. The intrahepatic portion of the IVC and visualized proximal and distal abdominal aorta are within normal limits. Liver is enlarged and heter ogeneously hyperechoic. Gallbladder is surgically absent. Common bile duct is unremarkable. The vis ualized portions of the pancreas are homogenous. The spleen is unremarkable. Kidneys are symmetric and free of hydronephrosis. No renal lesions are seen. IMPRESSION: Hepatomegaly with fatty infiltrative hepatocellular disease redemonstrated. No new biliar y dilatation or ascites. No significant change from prior CT.
[2023-01-24 12:07] LABS: % Iron Saturation 23.64 (12.00-45.00); ALT 46 U/L (8-44); AST 32 U/L (13-35); African American GFR (CKD) 57.6 (60.0-200.0); Albumin 4.7 g/dL (3.8-4.9); Alkaline Phosphatase 127 U/L (41-126); BUN/Creat Ratio 7.93 Ratio (12.00-20.00); Bilirubin, Conjugated <0.20 mg/dL (0.20-0.40); Blood Urea Nitrogen 9.8 mg/dL (9.0-27.0); Calcium 9.8 mg/dL (8.7-10.3); Carbon Dioxide 24.3 mmol/L (20.0-27.5); Chloride 104 mmol/L (96-109); Globulin 2.6 g/dL (1.6-3.3); Glucose 100 mg/dL (70-110); Iron 91 ug/dL (50-170); Non-African American GFR(CKD) 49.7 (60.0-200.0); Potassium 4.4 mmol/L (3.5-5.5); Sodium 142 mmol/L (135-145); Total Iron Binding Capacity 384 ug/dL (228-460); Total Protein 7.3 g/dL (6.2-8.2)
[2023-01-24 12:30] LABS: Ceruloplasmin 28.2 mg/dL (20.0-60.0)
[2023-01-25 05:56] LABS: EBV - VCA IgM <10.0 U/mL (<36.0)
[2023-01-27 12:57] LABS: Smooth Muscle Antibody 8 UNITS (<20)
== END | disposition home or self-care (01) ==
LOC: RADUSWWP 07:05
PROVIDERS: ATTEND Internal Medicine
DX: K76.0 Fatty (change of) liver, not elsewhere classified (principal); R74.01 Elevation of levels of liver transaminase levels
CPT/HCPCS: 36415; 76700; 80053; 82248; 82390; 82525; 83516; 83540; 83550; 86038; 86645; 86665

== ENCOUNTER → 2023-04-15 | Outpatient (CLI) | payer BC, MEDICARE ==
[2023-04-15 11:45] LABS: Appearance,Urine Cloudy (Clear); Bacteria,Urine Many /hpf; Bilirubin,Urine Negative (Negative); Blood,Urine Negative (Negative); Color,Urine Yellow; Glucose,Urine (UA) Negative (Negative); Ketones,Urine Negative (Negative); Leukocyte Esterase,Urine Large (Negative); Mucus,Urine Few /hpf; Nitrite,Urine Negative (Negative); Protein,Urine Trace (Negative); RBC,Urine 2 /hpf (0-5); Squamous Epithelial Cell,Urine 16 /hpf (0-4); Urobilinogen,Urine <2.0 mg/dL (<2.0); WBC,Urine 22 /hpf (0-5)
[2023-04-15 15:48] LABS: ALT 44 U/L (8-44); AST 28 U/L (13-35); Albumin 4.6 d/dL (3.8-4.9); Albumin/Globulin Ratio 1.77 Ratio (1.60-3.17); Alkaline Phosphatase 117 U/L (41-126); BUN/Creat Ratio 8.33 Ratio (12.00-20.00); Bilirubin, Conjugated <0.20 mg/dL (0.20-0.40); Bilirubin,Unconjugated >0 mg/dL (0.20-1.00); Calcium 9.9 mg/dL (8.7-10.3); Chloride 102 mmol/L (96-109); Globulin 2.6 d/dL (1.6-3.3); Glucose 112 mg/dL (70-110); Potassium 4.5 mmol/L (3.5-5.5); Sodium 139 mmol/L (135-145); Total Bilirubin 0.2 mg/dL (0.3-1.2); Total Protein 7.2 d/dL (6.2-8.2)
== END | disposition home or self-care (01) ==
LOC: LABWHC1 10:51
PROVIDERS: ATTEND Internal Medicine
DX: N28.9 Disorder of kidney and ureter, unspecified (principal)
CPT/HCPCS: 36415; 80053; 81001; 82248; 87086

== ENCOUNTER → 2023-08-13 | Outpatient (CLI) | payer BC, MEDICARE ==
--- NOTE | 2023-08-13 11:52 | US ---
EXAMINATION TYPE: US kidneys/renal and bladder DATE OF EXAM: 08/13/2023 COMPARISON: 01/24/23 CLINICAL INDICATION: Female, 53 years old with history of N18.31 CHRONIC KIDNEY DISEASE, STAGE 3A; CK D EXAM MEASUREMENTS: Right Kidney: 10.0x3.7x5.1 cm Left Kidney: 9.2x4.9x3.6 cm Right Kidney: wnl Left Kidney: wnl Bladder: wnl Bilateral Jets seen: Yes There is no evidence for hydronephrosis at this point in time. No nephrolithiasis is seen. No braulio s are identified. The urinary bladder is anechoic. Bilateral ureteral jets are seen. Exam slightly limited by bowel and body habitus IMPRESSION: No suspicious acute ultrasound changes bilateral kidneys
== END | disposition home or self-care (01) ==
LOC: RADUSWWP 07:37
PROVIDERS: ATTEND Internal Medicine Nephrology
DX: N18.31 Chronic kidney disease, stage 3a (principal)
CPT/HCPCS: 76770

== ENCOUNTER → 2023-08-25 | Outpatient (CLI) | payer BC, MEDICARE ==
--- NOTE | 2023-08-25 16:15 | XR ---
EXAMINATION TYPE: XR chest 2V DATE OF EXAM: 08/25/2023 COMPARISON: Prior chest CT September 26, 2022 HISTORY: URI TECHNIQUE: Frontal and lateral views of the chest are obtained. FINDINGS: There is no focal air space opacity, pleural effusion, or pneumothorax seen. The cardiac silhouette size is upper limits of normal. Cholecystectomy clips are noted on the lateral view. The osseous structures are intact. IMPRESSION: No acute pulmonary process.
== END | disposition home or self-care (01) ==
LOC: RADXRMAIN 15:49
PROVIDERS: ATTEND Internal Medicine
DX: J06.9 Acute upper respiratory infection, unspecified (principal)
CPT/HCPCS: 71046

== ENCOUNTER → 2023-09-09 | Outpatient (CLI) | payer BC, MEDICARE ==
[2023-09-09 18:37] LABS: T4, Free (Free Thyroxine) 0.82 ng/dL (0.80-1.80)
== END | disposition home or self-care (01) ==
LOC: LABWHC1 12:23
PROVIDERS: ATTEND Internal Medicine
DX: E03.9 Hypothyroidism, unspecified (principal); R73.03 Prediabetes
CPT/HCPCS: 36415; 83036; 84439; 84443

== ENCOUNTER → 2023-10-09 | Outpatient (CLI) | payer BC, MEDICARE ==
--- NOTE | 2023-10-14 03:22 | CTL ---
EXAMINATION TYPE: CT Low Dose Lung DATE OF EXAM: 10/09/2023 10:07 AM CLINICAL INDICATION:Female, 53 years old with history of Z12.2 LUNG CA SCREEN F17.210 NICOTINE DEPEND ENCE; History of tobacco dependence. , history of tobacco use. COMPARISON: Prior CT low dose lung 02/27/2022, and noncontrast diagnostic CT chest 09/26/2022 TECHNIQUE: CT scan of the chest obtained without contrast from approximately the lung apices through the upper abdomen. Axial, coronal and sagittal reformatted images were obtained. Low dose technique w as utilized for nodule screening purposes. CT DLP: 78.1 mGycm, Automated exposure control for dose reduction was used. CT Contrast: IV contrast used: None. Oral contrast used: None. FINDINGS: Lack of intravenous contrast and low dose technique limits the evaluation of the vascular and soft ti ssue structures. LUNGS: No evidence of pulmonary fibrosis. No evidence of focal consolidation or infiltrate. There are emphysematous changes bilaterally, mild in the upper lobes. Mild biapical fibronodular scarring. NODULES: A 3 mm left apical lung nodule image 24 series 4 remains stable. No new or enlarging lung nodules are seen. PLEURA: No sizeable pleural effusion or pneumothorax. AIRWAY: Central airways are patent. LOWER NECK: No significant findings. MEDIASTINUM: No evidence of enlarged mediastinal or hilar nodes, in the limits of noncontrast exam.. HEART: Normal heart size. No significant coronary arterial calcification seen.. No appreciable perica rdial effusion. Pericardial fat is prominent, especially on the right, this can accentuate the appare nt heart size on x-ray. VASCULATURE: Mild atherosclerotic calcifications of the aorta and branches. Ascending aorta shows mi ld fusiform ectasia measuring up to 3.7 CM, descending is 2.2 CM. Pulmonary trunk measures 2.8 CM, no rmal in size. Vessels otherwise not further assessed without contrast. SOFT TISSUES/LYMPH NODES: Unremarkable soft tissues. No axillary adenopathy. UPPER ABDOMEN: Diffuse hepatic steatosis with mild enlargement of the left lobe redemonstrated. MUSCULOSKELETAL: Mild disc degeneration changes are present throughout the thoracolumbar spine. No a cute findings. IMPRESSION: * A 3 mm left apical lung nodule remains unchanged. No new or enlarging lung nodules are seen. * Essentially stable ectasia of the ascending aorta up to 3.7 cm. * Hepatic steatosis. CT LUNG-RADS AND FOLLOWUP RECOMMENDATION: Lung-RADS Category 2, Benign. Based on imaging features or indolent behavior. Continue annual scree felisha with LDCT in 12 months. C Modifier (Personal history of lung cancer?): No. S Modifier (Other clinically significant or potentially significant findings?): No. Other significant or potentially significant abnormalities: None. Recommend smoking cessation (if current smoker), or continuation of smoking cessation (if prior smoke r). Annual screening for lung cancer with low-dose computed tomography is recommended in adults ages 55 to 77 years who have a 30 pack-year smoking history and currently smoke or have quit within the pa st 15 years. Screening should be discontinued once a person has not smoked for 15 years or develops a health problem that substantially limits life expectancy or the ability or willingness to have curat varsha lung surgery. Lung-RADS v.2022 Link Here [email or web address]
== END | disposition home or self-care (01) ==
LOC: RADCTMAIN 09:44
PROVIDERS: ATTEND Internal Medicine
DX: Z12.2 Encounter for screening for malignant neoplasm of respiratory organs (principal); I77.810 Thoracic aortic ectasia; K76.0 Fatty (change of) liver, not elsewhere classified; R91.1 Solitary pulmonary nodule; F17.210 Nicotine dependence, cigarettes, uncomplicated
CPT/HCPCS: 71271

== ENCOUNTER → 2023-10-21 | Outpatient (CLI) | payer BC, MEDICARE ==
--- NOTE | 2023-10-21 16:02 | BD ---
EXAMINATION TYPE: Axial Bone Density DATE OF EXAM: 10/21/2023 CLINICAL HISTORY: 53 years old Female. ICD-10 CODE: Z78.0 SCREEN OSTEOPOROSIS Height: 64 Weight: 209 FRAX RISK QUESTIONS: Family History (Parent hip fracture): no History of Fracture in Adulthood: yes, finger path fx Secondary Osteoporosis: no Current Tobacco Use: yes RISK FACTORS HISTORY OF: Surgery to Wrist (right): yes When: 2018 MEDICATIONS: Thyroid Medications: yes Which medication: Synthroid How Lon+ years EXAM MEASUREMENTS: Bone mineral densitometry was performed using the Poliglota System. Bone mineral density as measured about the Lumbar spine is: ----- L1-L4(G/cm2): 1.074 T Score Values are as follows: ----- L1: -0.4 ----- L2: -1.3 ----- L3: -1.2 ----- L4: -0.7 ----- L1-L4: -0.9 Z Score Values are as follows: ----- L1: -0.6 ----- L2: -1.5 ----- L3: -1.3 ----- L4: -0.9 ----- L1-L4: -1.0 Bone mineral density has: Decreased -12.4% since study of: 11/25/2016 Bone mineral density about the R hip (g/cm2): 0.939 Bone mineral density about the L hip (g/cm2): 0.963 T Score values are as follows: -----R Neck: -1.9 -----L Neck: -1.8 -----R Total: -0.5 -----L Total: -0.4 Z Score values are as follows: -----R Neck: -1.5 -----L Neck: -1.4 -----R Total: -0.6 -----L Total: -0.4 Bone mineral density has: Decreased -2.7% since study of: 11/25/2016 FRAX%s: The graph provided illustrates a 7.3% chance for a major osteoporotic fx and a 1.3% chance fo r the hips probability for fx in 10 years time. IMPRESSION: Osteopenia (T Score between -2.5 and -1). There is slightly increased risk of fracture and the patient may be considered for treatment. Re-Screen 2-5 years. NOTE: T-SCORE=SD OF THE YOUNG ADULT MEAN.
--- NOTE | 2023-10-22 11:11 | MM ---
Reason for Exam: Screening (asymptomatic). Last mammogram was performed 1 year(s) and 2 month(s) ago. Patient History: Menarche at age 11. First Full-Term at age 20. Postmenopausal. Hormonal Contraceptives for 10 years from age 18 until age 28. Maternal grandmother had breast cancer, age 40. Paternal aunt had breast cancer, age 55. Paternal aunt had breast cancer, age 65. Maternal aunt had breast cancer, age 45. Risk Values: Katelyn 5 year model risk: 1.1%. NCI Lifetime model risk: 7.4%. Prior Study Comparison: 11/02/2019 Bilateral Diagnostic Mammogram, [facility]. 03/21/2021 Bilateral Screening Mammogram, [facility]. 07/31/2022 Bilateral MG 3D screening mammo w/cad, [facility]. Tissue Density: There are scattered fibroglandular densities. Findings: Analyzed By CAD. There is no suspicious group of microcalcifications or new suspicious mass. Overall Assessment: Negative, BI-RAD 1 Management: Screening Mammogram of both breasts in [address] [facility] will attempt to contact patient to return for supplemental views and ultrasound if indicated. Patient should continue monthly self-breast exams. A clinical breast exam by your physician is recommended on an annual basis. This exam should not preclude additional follow-up of suspicious palpable abnormalities. Note on Katelyn scores and lifetime risk: 1. A Katelyn score greater than 3% is considered moderate risk. If this is the case, consider specialist referral to assess eligibility for a risk reducing agent. 2. If overall lifetime risk for the development of breast cancer is 20% or higher, the patient may qualify for future screening with alternating mammogram and breast MRI. Electronically signed and approved by: Zafar Dorsey DO
== END | disposition home or self-care (01) ==
LOC: RADMAMWWP 14:59
PROVIDERS: ATTEND Internal Medicine
DX: Z12.31 Encounter for screening mammogram for malignant neoplasm of breast (principal); Z13.820 Encounter for screening for osteoporosis; M85.89 Other specified disorders of bone density and structure, multiple sites; Z78.0 Asymptomatic menopausal state; Z80.3 Family history of malignant neoplasm of breast
CPT/HCPCS: 77063; 77067; 77080

== ENCOUNTER 2023-11-07 22:31 | Emergency (ER) | payer BC, MEDICARE ==
[2023-11-07 23:02] VITALS: TEMP 98.4
--- NOTE | 2023-11-07 23:23 | ED ---
General Adult HPI - General Chief complaint: Extremity Problem,Nontraumatic Stated complaint: Left Knee Pain Time Seen by Provider: 11/07/23 23:08 Source: patient, RN notes reviewed Mode of arrival: wheelchair Limitations: no limitations - History of Present Illness Initial comments: 53-year-old female presents to the emergency department for evaluation of left knee pain. Patient states that she does not know of any injury. She does report that she was recently helping someone move and walking up and down stairs frequently. She states that this may be why it is painful. Denies fever, chills, redness, swelling to the leg. - Related Data Home Medications Medication Instructions Recorded Confirmed Levothyroxine Sodium [Synthroid] 50 mcg PO AC-BRKFST 05/28/17 09/06/22 Omeprazole [PriLOSEC] 40 mg PO DAILY 02/13/22 09/06/22 Rosuvastatin [Crestor] 10 mg PO HS 02/13/22 09/06/22 lamoTRIgine [LaMICtal] 150 mg PO BID 02/13/22 09/06/22 QUEtiapine [SEROquel] 600 mg PO HS 05/27/22 09/06/22 Venlafaxine HCl ER [Effexor XR] 150 mg PO DAILY 05/27/22 09/06/22 Fluticasone Nasal [place] [Flonase 2 spray EA NOSTRIL DAILY 06/28/22 09/06/22 Nasal [place]] Previous Rx's Medication Instructions Recorded Acetaminophen Tab [Tylenol] 650 mg PO Q6H #30 tab 09/10/22 Docusate [Colace] 100 mg PO BID #20 capsule 09/10/22 Ibuprofen [Motrin] 600 mg PO Q6HR PRN #40 tab 09/10/22 oxyCODONE HCL [OxyIR] 5 mg PO Q6H PRN 3 Days #10 tab 09/10/22 Allergies Allergy/AdvReac Type Severity Reaction Status Date / Time No Known Allergies Allergy Verified 09/10/22 07:35 Review of Systems ROS Statement: Those systems with pertinent positive or pertinent negative responses have been documented in the HPI. ROS Other: All systems not noted in ROS Statement are negative. Past Medical History Past Medical History: GERD/Reflux, Hyperlipidemia, Myocardial Infarction (non Q- wave), Mitral Valve Prolapse (MVP), Renal Disease, Supraventricular Tachycardia (SVT), Thyroid Disorder Additional Past Medical History / Comment(s): POTS syndrome, brain cyst, Hypothyroidism., states boutts of diarrhea after eating and constipation, Stage III renal disease History of Any Multi-Drug Resistant Organisms: MRSA Date of last positivie culture/infection: 15 yrs ago MDRO Source:: surgery right arm Past Surgical History: Appendectomy, Cardiac Ablation, Cholecystectomy Additional Past Surgical History / Comment(s): bone graft finger right hand., Colonoscopy 2013., vascular surgery right arm x2 (aneurysm & infection)., cryotherapy of cervix. Past Anesthesia/Blood Transfusion Reactions: No Reported Reaction Past Psychological History: Bipolar Smoking Status: Current every day smoker - Past Family History Mother Family Medical History: Cancer Additional Family Medical History / Comment(s): Multiple myeloma. Maternal grandmother had colon cancer. Father Family Medical History: AFIB, Cancer, Diabetes Mellitus, Hyperlipidemia Additional Family Medical History / Comment(s): Skin cancer. Paternal aunt had breast cancer and another paternal aunt had breast cancer and colon cancer Brother(s) Family Medical History: Myocardial Infarction (CT) Additional Family Medical History / Comment(s): of an CT. Obesity. General Exam Limitations: no limitations General appearance: alert, in no apparent distress Head exam: Present: atraumatic, normocephalic, normal inspection Eye exam: Present: normal appearance, PERRL, EOMI. Absent: scleral icterus, conjunctival injection, periorbital swelling ENT exam: Present: normal exam, mucous membranes moist Respiratory exam: Present: normal lung sounds bilaterally. Absent: respiratory distress, wheezes, rales, rhonchi, stridor Cardiovascular Exam: Present: regular rate, normal rhythm, normal heart sounds. Absent: systolic murmur, diastolic murmur, rubs, gallop, clicks Extremities exam: Present: normal inspection, tenderness, normal capillary refill, calf tenderness (Left), other (DP and PT pulses 2+). Absent: full ROM (Range of motion at the left knee decreased due to pain), pedal edema, joint swelling Neurological exam: Present: alert, oriented X3 Psychiatric exam: Present: normal affect, normal mood Skin exam: Present: warm, dry, intact, normal color. Absent: rash Course Vital Signs 11/07/23 11/08/23 22:36 01:57 Temperature 98.4 F Pulse Rate 102 H 98 Respiratory 18 16 Rate Blood Pressure 147/84 146/95 O2 Sat by Pulse 100 98 Oximetry Medical Decision Making - Medical Decision Making Was pt. sent in by a medical professional or institution (EVELYNE Welsh, CORRECTIONAL PROGRAM OFFICER, urgent care, hospital, or care home...) When possible be specific @ -[No] Did you speak to anyone other than the patient for history (EMS, parent, family, police, friend...)? What history was obtained from this source @ -[No] Did you review nursing and triage notes (agree or disagree)? Why? @ -[I reviewed and agree with nursing and triage notes] Were old charts reviewed (outside hosp., previous admission, EMS record, old EKG, old radiological studies, urgent care reports/EKG's, care home records)? Report findings @ -[No old charts were reviewed] Differential Diagnosis (chest pain, altered mental status, abdominal pain women, abdominal pain men, vaginal bleeding, weakness, fever, dyspnea, syncope, headache, dizziness, GI bleed, back pain, seizure, CVA, palpatations, mental health, musculoskeletal)? @ -[Differential Musculoskeletal Muscular strain, contusion, ligament sprain, fracture, arthritis, septic arthritis, bursitis, cellulitis, muscle spasm, nerve compression, DVT, arterial occlusion, herpes zoster, electrolyte abnormality, tumor.... This is not meant to be in all inclusive list] EKG interpreted by me (3pts min.). @ -None X-rays interpreted by me (1pt min.). @ -X-ray left knee shows no acute fracture CT interpreted by me (1pt min.). @ -[None done] U/S interpreted by me (1pt. min.). @ -Left lower extremity ultrasound shows no acute DVT What testing was considered but not performed or refused? (CT, X-rays, U/S, labs)? Why? @ -[None] What meds were considered but not given or refused? Why? @ -[None] Did you discuss the management of the patient with other professionals (professionals i.e. EVELYNE Welsh, CORRECTIONAL PROGRAM OFFICER, lab, RT, psych nurse, psychiatric social worker supervisor, convertible power shovel operator, teacher, military source operations officer, case mgr)? Give summary @ -[No] Was smoking cessation discussed for >3mins.? @ -[No] Was critical care preformed (if so, how long)? @ -[No] Were there social determinants of health that impacted care today? How? (Homelessness, low income, unemployed, alcoholism, drug addiction, transportation, low edu. Level, literacy, decrease access to med. care, fci, rehab)? @ -[No] Was there de-escalation of care discussed even if they declined (Discuss DNR or withdrawal of care, Hospice)? DNR status @ -[No] What co-morbidities impacted this encounter? (DM, HTN, Smoking, COPD, CAD, Cancer, CVA, ARF, Chemo, Hep., AIDS, mental health diagnosis, sleep apnea, morbid obesity)? @ -[None] Was patient admitted / discharged? Hospital course, mention meds given and route, prescriptions, significant lab abnormalities, going to OR and other pertinent info. @ -Discharge. Patient presented to the emergency department for evaluation of left knee pain. X-rays obtained which shows no acute fracture. Ultrasound of the left lower extremity shows no acute DVT. Patient provided pain control with Norflex and Toradol. Advised patient on findings of testing and plan to discharge home. Patient given Flexeril starter pack along with ibuprofen. Advised not to drive or operate heavy machinery if taking the muscle relaxer. Patient understanding agreeable with plan. Patient stable at time of discharge. Case discussed with Dr. Garza. Undiagnosed new problem with uncertain prognosis? @ -[No] Drug Therapy requiring intensive monitoring for toxicity (Heparin, Nitro, Insulin, Cardizem)? @ -[No] Were any procedures done? @ -[No] Diagnosis/symptom? @ -Left knee pain Acute, or Chronic, or Acute on Chronic? @ -Acute Uncomplicated (without systemic symptoms) or Complicated (systemic symptoms)? @ -Uncomplicated Side effects of treatment? @ -[No] Exacerbation, Progression, or Severe Exacerbation? @ -[No] Poses a threat to life or bodily function? How? (Chest pain, USA, CT, pneumonia, PE, COPD, DKA, ARF, appy, cholecystitis, CVA, Diverticulitis, Homicidal, Suic idal, threat to staff... and all critical care pts) @ -[No] Disposition Clinical Impression: Left knee sprain Disposition: HOME SELF-CARE Condition: Stable Instructions (If sedation given, give patient instructions): Knee Pain (ED) Additional Instructions: Do not drive or operate heavy machinery while taking the muscle relaxer. Please follow up with your primary care provider. Return to the emergency department for new or worsening symptoms. Is patient prescribed a controlled substance at d/c from ED?: No Referrals: Dima Morales DO [Primary Care Provider] - 1-2 days
[2023-11-07] MEDS: KETOROLAC 15 MG/ML 1 ML VIAL IM STA (23:36)
[2023-11-07] MEDS: ORPHENADRINE 30 MG/ML 2 ML VIAL IM STA (23:36)
--- NOTE | 2023-11-08 01:42 | US ---
EXAM: US Duplex Left Lower Extremity Veins CLINICAL HISTORY: ITS.REASON US Reason: pain TECHNIQUE: Real-time duplex ultrasound scan of the left lower extremity veins integrating B-mode two-dimensional vascular structure, Doppler spectral analysis, color flow Doppler imaging and compression. COMPARISON: No previous studies. FINDINGS: Deep veins: Unremarkable. No deep venous thrombosis left common femoral vein, left superficial femoral vein, the left popliteal vein. Superficial veins: Unremarkable. No thrombus in the visualized great saphenous vein. Soft tissues: No acute findings. No Bakers cyst. Other findings: Calf veins were not assessed. IMPRESSION: No deep venous thrombosis proximal are left lower extremity.
--- NOTE | 2023-11-08 01:43 | XR ---
EXAM: XR Left Knee, 3 Views CLINICAL HISTORY: ITS.REASON XR Reason: pain TECHNIQUE: Three views of the left knee. COMPARISON: No previous studies. FINDINGS: Bones/joints: Mild tricompartmental osteoarthritic changes about the left knee joint are noted. Moderate left knee joint effusion. No acute fracture. No dislocation. Soft tissues: The soft tissues are unremarkable. IMPRESSION: 1. Mild tricompartmental osteoarthritic changes about the left knee joint. 2. Moderate left knee joint effusion. 3. MRI imaging is suggested to follow, as seen clinically necessary.
[2023-11-08] MEDS: IBUPROFEN 600 MG STARTER PACK 4 TAB BTL PO STA (02:12)
[2023-11-08] MEDS: CYCLOBENZAPRINE 10MG STARTER 3 TAB BTL PO STA (02:12)
[2023-11-08] MEDS: ACET/COD 300 MG/30 MG STARTER PACK 6 TAB BTL PO STA (02:12)
[2023-11-08] MEDS: KETOROLAC 15 MG/ML 1 ML VIAL IM STA (02:19)
[2023-11-08 02:25] VITALS: BP 146/95; PULSE 98; RESP 16
== END 2023-11-08 02:22 | disposition home or self-care (01) ==
LOC: EC 22:31
DX: S83.92XA Sprain of unspecified site of left knee, initial encounter (principal); E03.9 Hypothyroidism, unspecified; E78.5 Hyperlipidemia, unspecified; I25.2 Old myocardial infarction; K21.9 Gastro-esophageal reflux disease without esophagitis; F31.9 Bipolar disorder, unspecified; F17.200 Nicotine dependence, unspecified, uncomplicated; Z79.890 Hormone replacement therapy; Z79.899 Other long term (current) drug therapy; X58.XXXA Exposure to other specified factors, initial encounter
CPT/HCPCS: 73562; 93971; 99284; 96372 ×3; J2360; J1885 ×2

== ENCOUNTER → 2024-01-09 | Outpatient (CLI) | payer BC, MEDICARE ==
--- NOTE | 2024-01-09 13:42 | US ---
EXAMINATION TYPE: US carotid duplex BILAT DATE OF EXAM: 01/09/2024 COMPARISON: NONE CLINICAL INDICATION: Female, 53 years old with history of I65.23 OCCLUSION AND STENOSIS OF BILATERAL CAROTID; stenosis TECHNIQUE: Carotid duplex ultrasound examination. Indirect Doppler criteria was utilized. FINDINGS: EXAM MEASUREMENTS: RIGHT: Peak Systolic Velocity (PSV) cm/sec ----- Right CCA: 63.8 ----- Right ICA: 72.5 ----- Right ECA: 63.8 ICA/CCA ratio: 1.1 RIGHT: End Diastole cm/sec ----- Right CCA: 21.7 ----- Right ICA: 28.9 ----- Right ECA: 17.3 LEFT: Peak Systolic Velocity (PSV) cm/sec ----- Left CCA: 75.4 ----- Left ICA: 72.5 ----- Left ECA: 68.2 ICA/CCA ratio: 1.0 LEFT: End Diastole cm/sec ----- Left CCA: 27.5 ----- Left ICA: 26 ----- Left ECA: 18.8 VERTEBRALS (direction of flow): Right Vertebral: Antegrade Left Vertebral: Antegrade Rhythm: Normal OSHA INSPECTOR NOTES: No significant stenosis seen IMPRESSION: No evidence for hemodynamically significant stenosis Criteria for Assigning % of Stenosis / Diameter reduction (Estimation based on the indirect measurements of the internal carotid artery velocities (ICA PSV). 1. Normal (no stenosis)=ICA PSV < 125 cm/s: ratio < 2.0: ICA EDV<40 cm/s. 2. Less than 50% stenosis=ICA PSV < 125 cm/s: ratio < 2.0: ICA EDV<40 cm/s. 3. 50 to 69% stenosis=ICA PSV of 125 to 230 cm/s: ration 2.0 ? 4.0: ICA EDV 40-100 cm/s. 4. Greater than 70% stenosis to near occlusion= ICA PSV > 230 cm/s: ratio > 4.0: ICA EDV > 100 cm/s. 5. Near occlusion= ICA PSV velocities may be low or undetectable: variable ratio and ICA EDV. 6. Total occlusion=unable to detect flow.
== END | disposition home or self-care (01) ==
LOC: RADUSWWP 13:09
PROVIDERS: ATTEND Internal Medicine
DX: I65.23 Occlusion and stenosis of bilateral carotid arteries (principal)
CPT/HCPCS: 93880

== ENCOUNTER → 2024-06-24 | Outpatient (CLI) | payer BC, MEDICARE ==
[2024-06-24 15:29] LABS: Appearance,Urine Clear (Clear); Bilirubin,Urine Negative (Negative); Blood,Urine Negative (Negative); Color,Urine Colorless; Glucose,Urine (UA) Negative (Negative); Ketones,Urine Negative (Negative); Leukocyte Esterase,Urine Negative (Negative); Nitrite,Urine Negative (Negative); Protein,Urine Negative (Negative); Specific Gravity,Urine 1.008 (1.001-1.035); Urobilinogen,Urine <2.0 mg/dL (<2.0)
[2024-06-24 18:00] LABS: Basophils # (A) 0.06 X 10*3/uL (0.00-0.10); Basophils % (A) 0.7 %; Eosinophils # (A) 0.13 X 10*3/uL (0.04-0.35); Eosinophils % (A) 1.6 %; HCT 44.2 % (37.2-46.3); HGB 13.7 g/dL (12.0-15.0); Lymphocytes # (A) 2.13 X 10*3/uL (0.90-5.00); Lymphocytes % (A) 26.1 %; MCV 93.6 FL (80.0-97.0); Mean Platelet Volume 9.6 FL (9.5-12.2); Monocytes # (A) 0.44 X 10*3/uL (0.20-1.00); Monocytes % (A) 5.4 %; NRBC Per 100 WBC 0 X 10*3/uL (0.00-0.01); Neutrophils # (A) 5.38 X 10*3/uL (1.80-7.70); Neutrophils % (A) 65.8 %; Platelet Count 355 X 10*3/uL (140-440); RBC 4.72 X 10*6/uL (4.10-5.20); RDW 13.7 % (11.5-14.5); WBC 8.17 X 10*3/uL (4.50-10.00)
[2024-06-24 18:24] LABS: % Iron Saturation 21.14 (12.00-45.00); ALT 32 U/L (8-44); AST 26 U/L (13-35); Albumin 4.6 g/dL (3.8-4.9); Albumin/Globulin Ratio 1.53 Ratio (1.60-3.17); Alkaline Phosphatase 117 U/L (41-126); BUN/Creat Ratio 6.18 Ratio (12.00-20.00); Blood Urea Nitrogen 6.8 mg/dL (9.0-27.0); Calcium 9.8 mg/dL (8.7-10.3); Carbon Dioxide 22.5 mmol/L (21.6-31.8); Chloride 103 mmol/L (96-109); Chol/HDL Ratio 3.16 Ratio; Glucose 110 mg/dL (70-110); Iron 74 UG/DL (50-170); LDL Cholesterol,Calculated 75.5 mg/dL (0.0-131.0); Magnesium 2.2 mg/dL (1.5-2.4); Phosphorus 3.8 mg/dL (2.4-5.1); Potassium 5.4 mmol/L (3.5-5.5); Sodium 141 mmol/L (135-145); T4, Free (Free Thyroxine) 0.94 ng/dL (0.80-1.80); Total Bilirubin 0.3 mg/dL (0.3-1.2); Total Iron Binding Capacity 350 UG/DL (228-460); Total Protein 7.6 g/dL (6.2-8.2); Uric Acid 5.4 mg/dL (2.9-7.7)
== END | disposition home or self-care (01) ==
LOC: LABWHC1 13:09
PROVIDERS: ATTEND Internal Medicine
DX: F31.9 Bipolar disorder, unspecified (principal); E78.2 Mixed hyperlipidemia; E03.9 Hypothyroidism, unspecified; E55.9 Vitamin D deficiency, unspecified; R73.03 Prediabetes; M25.562 Pain in left knee; N28.9 Disorder of kidney and ureter, unspecified
CPT/HCPCS: 36415; 80053; 80061; 81003; 82306; 82728; 83036; 83540; 83550; 83735; 84100; 84439; 84443; 84550; 85025

== ENCOUNTER → 2024-11-01 | Outpatient (CLI) | payer BC, MEDICARE ==
--- NOTE | 2024-11-01 12:03 | CTL ---
EXAMINATION TYPE: CT Low Dose Lung DATE OF EXAM: 11/01/2024 11:14 AM COMPARISON: 10/09/2023 CLINICAL INDICATION: Female, 54 years old with history of F17.210 nicotine dependence; Personal hx ni cotine dependence, current smoker 2 ppd x 21 years., history of tobacco use. TECHNIQUE: Multiple axial non-contrast scans were obtained from approximately the lung apices through the upper abdomen. Coronal and sagittal reformatted images were obtained. Low dose technique was uti lized. MIP were created on a separate workstation and submitted for review. CT DLP: 90.2 mGycm, Automated exposure control for dose reduction was used. CT Contrast: Contrast used: None Oral contrast used: None FINDINGS: Lack of intravenous contrast and low dose technique limits the evaluation of the vascular and soft ti ssue structures. LUNGS: No evidence of pulmonary fibrosis. No evidence of focal consolidation, pneumothorax or pleural effusion. Centrilobular emphysema changes. Nodules: RUL: Suspected probable right apical pleural scarring as a more nodular like appearance bilobed m easuring 11 and 9 mm. RML: None. RLL: None. SCOOBY: None. LLL: None. AIRWAY: Patent and unremarkable. HEART: Size within normal limits. MEDIASTINUM: No gross evidence of adenopathy. VASCULATURE: No aortic aneurysm. MUSCULOSKELETAL: No acute osseous abnormalities SOFT TISSUES/LYMPH NODES: Unremarkable. LOWER NECK: No significant findings. UPPER ABDOMEN: Diffuse low-attenuation to the liver parenchyma. The gallbladder surgically absent. IMPRESSION: 1. Right apical possible pleural scarring is more pronounced on today's exam. Given its nodular appea makayla short-term follow-up recommended. 2. Mild emphysema. 3. Hepatic steatosis. CT LUNG RAD AND CT CHEST RECOMMENDATION: Lung-Rad 3 Probably Benign: 6 month follow-up LDCT. S Modifier (other clinically significant findings): None Recommend smoking cessation (if current smoker), or continuation of smoking cessation (if prior smoke r). Annual screening for lung cancer with low-dose computed tomography is recommended in adults ages 55 to 77 years who have a 30 pack-year smoking history and currently smoke or have quit within the pa st 15 years. Screening should be discontinued once a person has not smoked for 15 years or develops a health problem that substantially limits life expectancy or the ability or willingness to have curat varsha lung surgery. Lung rads 2021 [email or web address] [facility], , 11/01/2024 12:01 PM
== END | disposition home or self-care (01) ==
LOC: RADCTMAIN 10:44
PROVIDERS: ATTEND Internal Medicine
DX: Z12.2 Encounter for screening for malignant neoplasm of respiratory organs (principal); J43.9 Emphysema, unspecified; F17.210 Nicotine dependence, cigarettes, uncomplicated; K76.0 Fatty (change of) liver, not elsewhere classified
CPT/HCPCS: 71271

== ENCOUNTER → 2024-12-01 | Outpatient (CLI) | payer BC, MEDICARE ==
[2024-12-01 18:21] LABS: Basophils # (A) 0.06 X 10*3/uL (0.00-0.10); Basophils % (A) 0.8 %; Eosinophils # (A) 0.15 X 10*3/uL (0.04-0.35); HCT 42.4 % (37.2-46.3); HGB 13.2 g/dL (12.0-15.0); Lymphocytes # (A) 2.22 X 10*3/uL (0.90-5.00); Lymphocytes % (A) 29.4 %; MCH 28.9 pg (27.0-32.0); MCHC 31.1 g/dL (32.0-37.0); MCV 92.8 FL (80.0-97.0); Mean Platelet Volume 9.9 FL (9.5-12.2); Monocytes % (A) 5.3 %; NRBC Per 100 WBC 0 X 10*3/uL (0.00-0.01); Neutrophils % (A) 62.2 %; Platelet Count 356 X 10*3/uL (140-440); RBC 4.57 X 10*6/uL (4.10-5.20); RDW 12.7 % (11.5-14.5); WBC 7.55 X 10*3/uL (4.50-10.00)
[2024-12-01 18:46] LABS: % Iron Saturation 17.13 (12.00-45.00); ALT 24 U/L (8-44); AST 26 U/L (13-35); Albumin 4.4 g/dL (3.8-4.9); Albumin/Globulin Ratio 1.57 Ratio (1.60-3.17); Alkaline Phosphatase 121 U/L (41-126); Blood Urea Nitrogen 10.3 mg/dL (9.0-27.0); Calcium 9.4 mg/dL (8.7-10.3); Carbon Dioxide 20.1 mmol/L (21.6-31.8); Chloride 101 mmol/L (96-109); Chol/HDL Ratio 3.14 Ratio; Globulin 2.8 g/dL (1.6-3.3); Glucose 107 mg/dL (70-110); Iron 61 UG/DL (50-170); Potassium 4.4 mmol/L (3.5-5.5); Rheumatoid Factor, Qnt 122 IU/mL (0-15); Sodium 135 mmol/L (135-145); T4, Free (Free Thyroxine) 0.82 ng/dL (0.80-1.80); Total Bilirubin 0.2 mg/dL (0.3-1.2); Total Iron Binding Capacity 356 UG/DL (228-460); Total Protein 7.2 g/dL (6.2-8.2); Uric Acid 4.6 mg/dL (2.9-7.7)
[2024-12-01 21:11] LABS: Centromere Antibody <0.2 AI; Centromere Antibody Interp Negative (Negative); DNA Double-Stranded Indetermin (Negative)
[2024-12-01 22:52] LABS: Cyclic Citrullinated Pep IgG Positive (Negative)
== END | disposition home or self-care (01) ==
LOC: LABWHC1 15:16
PROVIDERS: ATTEND Internal Medicine
DX: E78.2 Mixed hyperlipidemia (principal); M25.50 Pain in unspecified joint; N18.30 Chronic kidney disease, stage 3 unspecified; E03.9 Hypothyroidism, unspecified; M85.80 Other specified disorders of bone density and structure, unspecified site; R73.03 Prediabetes
CPT/HCPCS: 36415; 80053; 80061; 82306; 82728; 83036; 83540; 83550; 83735; 83970; 84439; 84443; 84550; 85025; 86038; 86039; 86200; 86225; 86235; 86431

== ENCOUNTER → 2024-12-06 | Outpatient (CLI) | payer BC, MEDICARE ==
--- NOTE | 2024-12-06 16:52 | US ---
EXAMINATION TYPE: US carotid duplex BILAT DATE OF EXAM: 12/06/2024 COMPARISON: 01/09/24 carotid ultrasound CLINICAL INDICATION: Female, 54 years old with history of I65.23 OCCLUSION AND STENOSIS OF BILATERAL CAROTID; stenosis Additional History: I65.- Occlusion/stenosis of specified precerebral artery, specified laterality TECHNIQUE: Grayscale, color Doppler and spectral Doppler evaluation of the bilateral carotid systems and vertebral arteries. Indirect Doppler criteria was utilized. FINDINGS: EXAM MEASUREMENTS: RIGHT: Peak Systolic Velocity (PSV) cm/sec ----- Right CCA: 60.1 ----- Right ICA: 83.2 ----- Right ECA: 82.1 ICA/CCA ratio: 1.4 RIGHT: End Diastole cm/sec ----- Right CCA: 18.3 ----- Right ICA: 38.1 ----- Right ECA: 20.5 LEFT: Peak Systolic Velocity (PSV) cm/sec ----- Left CCA: 63.3 ----- Left ICA: 76.4 ----- Left ECA: 70.3 ICA/CCA ratio: 1.2 LEFT: End Diastole cm/sec ----- Left CCA: 23.2 ----- Left ICA: 33.8 ----- Left ECA: 18.0 VERTEBRALS (direction of flow): Right Vertebral: Antegrade Left Vertebral: Antegrade Rhythm: Normal JOURNEYMAN PAINTER NOTES: no significantly elevated velocities seen Color Doppler imaging shows patency with blood flow throughout the carotid artery. Spectral waveforms are within normal limits. IMPRESSION: No significant change from most recent prior. Right: No hemodynamically significant stenosis. Left: No hemodynamically significant stenosis. Criteria for Assigning % of Stenosis / Diameter reduction (Estimation based on the indirect measurements of the internal carotid artery velocities (ICA PSV). 1. Normal (no stenosis)=ICA PSV < 125 cm/s: ratio < 2.0: ICA EDV<40 cm/s. 2. Less than 50% stenosis=ICA PSV < 125 cm/s: ratio < 2.0: ICA EDV<40 cm/s. 3. 50 to 69% stenosis=ICA PSV of 125 to 230 cm/s: ration 2.0 ? 4.0: ICA EDV 40-100 cm/s. 4. Greater than 70% stenosis to near occlusion= ICA PSV > 230 cm/s: ratio > 4.0: ICA EDV > 100 cm/s. 5. Near occlusion= ICA PSV velocities may be low or undetectable: variable ratio and ICA EDV. 6. Total occlusion=unable to detect flow. [facility], , 12/06/2024 4:49 PM
== END | disposition home or self-care (01) ==
LOC: RADUSWWP 15:42
PROVIDERS: ATTEND Internal Medicine
DX: I65.23 Occlusion and stenosis of bilateral carotid arteries (principal)
CPT/HCPCS: 93880

== ENCOUNTER → 2025-01-12 | Outpatient (CLI) | payer BC, MEDICARE ==
--- NOTE | 2025-01-12 12:25 | XR ---
EXAMINATION TYPE: XR chest 2V DATE OF EXAM: 01/12/2025 11:00 AM COMPARISON: 08/25/2023 CLINICAL INDICATION: Female, 54 years old with history of J44.1 CHRONIC OBSTRUCTIVE PULMONARY DISEASE W (ACU, , TECHNIQUE: Frontal and lateral views FINDINGS: The cardiomediastinal silhouette, aorta, and pulmonary vasculature are within normal limits. Increase d retrosternal clear space. Some patchy opacity at the medial right base now noted. No pleural effusi on. IMPRESSION: COPD with either patchy atelectasis or developing pneumonia at the medial right base. [facility], Workstation: [facility], 01/12/2025 12:22 PM
== END | disposition home or self-care (01) ==
LOC: RADXRMAIN 10:39
PROVIDERS: ATTEND Internal Medicine
DX: J44.1 Chronic obstructive pulmonary disease with (acute) exacerbation (principal)
CPT/HCPCS: 71046

== ENCOUNTER → 2025-02-09 | Outpatient (CLI) | payer MEDICARE ==
--- NOTE | 2025-02-09 16:34 | XR ---
EXAMINATION TYPE: XR chest 2V DATE OF EXAM: 02/09/2025 4:17 PM COMPARISON: 01/12/2025 CLINICAL INDICATION: Female, 54 years old with history of J44.1; [facility] TECHNIQUE: XR chest 2V Frontal and lateral views of the chest. FINDINGS: Lungs/Pleura: There is no evidence of pleural effusion, focal consolidation, or pneumothorax. Pulmonary vascularity: Unremarkable. Heart/mediastinum: Cardiomediastinal silhouette is unremarkable. Musculoskeletal: No acute osseous pathology. IMPRESSION: No acute cardiopulmonary disease/process. [facility], , 02/09/2025 4:31 PM
[2025-02-09 18:26] LABS: Basophils # (A) 0.05 X 10*3/uL (0.00-0.10); Basophils % (A) 0.6 %; Eosinophils # (A) 0.19 X 10*3/uL (0.04-0.35); Eosinophils % (A) 2.1 %; HGB 13.8 g/dL (12.0-15.0); Lymphocytes # (A) 3.09 X 10*3/uL (0.90-5.00); Lymphocytes % (A) 34.5 %; MCH 29.9 pg (27.0-32.0); MCHC 32.1 g/dL (32.0-37.0); MCV 93.1 FL (80.0-97.0); Mean Platelet Volume 9.7 FL (9.5-12.2); Monocytes # (A) 0.32 X 10*3/uL (0.20-1.00); Monocytes % (A) 3.6 %; NRBC Per 100 WBC 0 X 10*3/uL (0.00-0.01); Neutrophils # (A) 5.24 X 10*3/uL (1.80-7.70); Neutrophils % (A) 58.5 %; Platelet Count 320 X 10*3/uL (140-440); RBC 4.62 X 10*6/uL (4.10-5.20); RDW 15.9 % (11.5-14.5); WBC 8.95 X 10*3/uL (4.50-10.00)
[2025-02-09 18:31] LABS: ALT 46 U/L (8-44); AST 39 U/L (13-35); BUN/Creat Ratio 10.27 Ratio (12.00-20.00); Blood Urea Nitrogen 11.3 mg/dL (9.0-27.0); Calcium 9.8 mg/dL (8.7-10.3); Carbon Dioxide 20.7 mmol/L (21.6-31.8); Chloride 103 mmol/L (96-109); Glucose 96 mg/dL (70-110); Potassium 4.4 mmol/L (3.5-5.5); Sodium 139 mmol/L (135-145)
[2025-02-09 18:54] LABS: Erythrocyte Sedimentation Rate 25 mm/Hr (0-30)
== END | disposition home or self-care (01) ==
LOC: LABWHC1 15:32
PROVIDERS: ATTEND Internal Medicine Rheumatology
DX: M06.89 Other specified rheumatoid arthritis, multiple sites (principal); Z79.631 Long term (current) use of antimetabolite agent
CPT/HCPCS: 36415; 71046; 80048; 84450; 84460; 85025; 85652; 86140

== ENCOUNTER → 2025-02-15 | Outpatient (CLI) | payer BC, MEDICARE ==
--- NOTE | 2025-02-15 12:24 | MM ---
Reason for Exam: Screening (asymptomatic). Last mammogram was performed 1 year(s) and 4 month(s) ago. Patient History: Menarche at age 11. First Full-Term at age 20. Postmenopausal. Hormonal Contraceptives for 10 years from age 18 until age 28. Maternal grandmother had breast cancer, age 40. Paternal aunt had breast cancer, age 55. Paternal aunt had breast cancer, age 65. Maternal aunt had breast cancer, age 45. Risk Values: Katelyn 5 year model risk: 1.1%. NCI Lifetime model risk: 7.2%. Prior Study Comparison: 03/21/2021 Bilateral Screening Mammogram, [facility]. 07/31/2022 Bilateral MG 3D screening mammo w/cad, [facility]. 10/21/2023 Bilateral MG 3D screening mammo w/cad, [facility]. Tissue Density: The breasts are almost entirely fatty. Findings: Analyzed By CAD. Right breast: There is no suspicious group of microcalcifications or new suspicious mass. Left breast: There is no suspicious group of microcalcifications or new suspicious mass. Overall Assessment: Negative, BI-RAD 1 Management: Screening Mammogram of both breasts in [address] [facility] will attempt to contact patient to return for supplemental views and ultrasound if indicated. Patient should continue monthly self-breast exams. A clinical breast exam by your physician is recommended on an annual basis. This exam should not preclude additional follow-up of suspicious palpable abnormalities. Note on Katelyn scores and lifetime risk: 1. A Katelyn score greater than 3% is considered moderate risk. If this is the case, consider specialist referral to assess eligibility for a risk reducing agent. 2. If overall lifetime risk for the development of breast cancer is 20% or higher, the patient may qualify for future screening with alternating mammogram and breast MRI. [facility], , 02/15/2025 8:21 AM. Electronically signed and approved by: Zafar Dorsey DO
== END | disposition home or self-care (01) ==
LOC: RADMAMWWP 08:09
PROVIDERS: ATTEND Internal Medicine
DX: Z12.31 Encounter for screening mammogram for malignant neoplasm of breast (principal); R92.313 Mammographic fatty tissue density, bilateral breasts; Z78.0 Asymptomatic menopausal state; Z80.3 Family history of malignant neoplasm of breast; Z92.0 Personal history of contraception
CPT/HCPCS: 77063; 77067

== ENCOUNTER 2025-04-08 06:57 | Day surgery (SDC) | payer MEDICARE ==
[2025-04-05 16:13] VITALS: BMI 34.3
[~2025-04-08 06:57] MED LIST changes: -ACETAMINOPHEN TAB 500 MG TAB PO PRN; -DEXAMETHASONE SOD PHOSPHATE 4 MG/ML 1 ML VIAL IV ONE; -HEPARIN SODIUM,PORCINE/PF 5,000 UNIT/0.5 ML SYRINGE SQ PRN; -LACTATED RINGERS 1,000 ML IV SCH; -ONDANSETRON 4 MG/2 ML VIAL IVP ONE; +Pre Op ABX Message 1 EACH MISC MISCELLANE ONE
[2025-04-08] MEDS: IV FLUID CONTINUATION 1,000 ML IV ONE (07:07)
[2025-04-08 07:22] VITALS: TEMP 96.8
[2025-04-08] MEDS: ACETAMINOPHEN TAB 500 MG TAB PO PRN (07:28)
[2025-04-08] MEDS: LACTATED RINGERS 1,000 ML BAG IV STA (07:31)
[2025-04-08] MEDS: ONDANSETRON 4 MG/2 ML VIAL IVP STA (07:57)
[2025-04-08] MEDS ORDERED: MIDAZOLAM 2 MG/2 ML VIAL ONE (07:58)
[2025-04-08] MEDS ORDERED: PROPOFOL 10 MG/ML 20 ML VIAL IV ONE (07:58)
[2025-04-08] MEDS: HEPARIN SODIUM,PORCINE 5,000 UNIT/ML 1 ML VIAL SQ PRN (07:58)
[2025-04-08] MEDS ORDERED: fentaNYL (PF) 50 MCG/ML 2 ML AMP ONE (07:58)
[2025-04-08] MEDS ORDERED: LIDOCAINE 1% INJ 10MG/ML (20 ML MDV) ONE (07:58)
[2025-04-08] MEDS: DEXAMETHASONE SOD PHOSPHATE 4 MG/ML 1 ML VIAL IVP STA (07:58)
[2025-04-08] MEDS: SODIUM CHLORIDE 0.9% 50 ML with ceFAZolin 2,000 MG IV ONE (08:14)
[2025-04-08] MEDS: LIDOCAINE 1%-EPI 1:100,000 20 ML VIAL SQ ONE (08:22)
[2025-04-08 08:44] VITALS: RESP 16
--- NOTE | 2025-04-08 08:46 | P.OP ---
Date of Procedure: 04/08/25 Preoperative Diagnosis: Rheumatoid arthritis Postoperative Diagnosis: Rheumatoid arthritis Procedure(s) Performed: Right subclavian Port-A-Cath Anesthesia: WILLIAM Surgeon: Víctor Dietz Estimated Blood Loss (ml): 5 Pathology: none sent Condition: stable Disposition: PACU Description of Procedure: The patient was placed on the operating table in the supine position. The patient received IV sedation. The patient's chest was prepped and draped in the usual sterile fashion. A roll had been placed between the shoulder blades in a longitudinal fashion. After prepping and draping the skin was anesthetized 1% local Xylocaine. And then using the Seldinger technique the subclavian vein was cannulated. A wire was placed into the vein and fluoroscopy position the wire at the atrial caval junction. Next the dilator sheath was placed over top the wire and the wire was withdrawn. The catheter was positioned at the atriocaval position. The catheter was placed through the sheath after the dilator was withdrawn. The sheath was then withdrawn. Position of the catheter was confirmed with fluoroscopy. The Port-A-Cath was connected to the catheter. The Port-A-Cath was flushed with saline and then heparinized saline. The skin was closed interrupted 3-0 Monocryl suture. Dermabond was applied. Patient tolerated procedure well and was sent to recovery room stable condition.
--- NOTE | 2025-04-08 08:54 | FL ---
EXAMINATION TYPE: FL guided central line placemt Intraoperative/procedural fluoroscopic services were provided. CLINICAL INDICATION:Female, 55 years old with history of INSERT PORT A CATH; , [facility] FINDINGS: Single fluoroscopic imaging demonstrating right Port-A-Cath with distal tip appearing to be in the mi d SVC. No radiographic evidence for complication. Total fluoroscopy time is 14.0 seconds. DAP: [id number] [id number] Please see the operative/procedural note for further details. [facility], , 04/08/2025 8:51 AM
--- NOTE | 2025-04-08 09:22 | XR ---
EXAMINATION TYPE: XR chest 1V portable DATE OF EXAM: 04/08/2025 9:17 AM COMPARISON: Chest radiographs from 02/09/2025 TECHNIQUE: XR chest 1V portable Portable AP radiograph of the chest. CLINICAL INDICATION:Female, 55 years old with history of post op; FINDINGS: Lungs/Pleura: There is no evidence of pleural effusion, focal consolidation, or pneumothorax. Pulmonary vascularity: Unremarkable. Heart/mediastinum: Cardiomediastinal silhouette is unremarkable. Musculoskeletal: No acute osseous pathology. Surgical changes within the mandible. Lines/Tubes: Interval placement of right chest subclavian approach Mediport catheter with distal tip at the high S VC. IMPRESSION: Interval placement of right chest subclavian approach Mediport catheter with distal tip at the high S VC. No pneumothorax. [facility], , 04/08/2025 9:20 AM
[2025-04-08 09:24] VITALS: BP 121/68; PULSE 80
== END 2025-04-08 09:46 | disposition home or self-care (01) ==
LOC: OR 06:57
PROVIDERS: ATTEND Surgery
DX: M06.9 Rheumatoid arthritis, unspecified (principal); K43.2 Incisional hernia without obstruction or gangrene; M05.00 Felty's syndrome, unspecified site; G90.A Postural orthostatic tachycardia syndrome [POTS]; I34.1 Nonrheumatic mitral (valve) prolapse; E78.5 Hyperlipidemia, unspecified; I47.10 Supraventricular tachycardia, unspecified; J44.9 Chronic obstructive pulmonary disease, unspecified; E07.9 Disorder of thyroid, unspecified; N18.30 Chronic kidney disease, stage 3 unspecified; K76.0 Fatty (change of) liver, not elsewhere classified; K21.9 Gastro-esophageal reflux disease without esophagitis; F31.9 Bipolar disorder, unspecified; F17.210 Nicotine dependence, cigarettes, uncomplicated; Z79.899 Other long term (current) drug therapy; Z79.890 Hormone replacement therapy; Z98.890 Other specified postprocedural states; Z90.49 Acquired absence of other specified parts of digestive tract
CPT/HCPCS: 77001; 71045; 36561; C1788; J2250; J1644; J1100; J2405; J0690; J2003; J3010; J1642; J2704